=== PATIENT | female | born 1960 | race American Indian/Alaskan Native ===

== ENCOUNTER 2016-07-12 05:52 | Day surgery (SDC) | payer MEDICAID ==
[2016-07-12] MEDS ORDERED: ECOTRIN PO ONE (06:21)
[2016-07-12 06:55] LABS: Basophils % (Auto) 0.3 % (0.0-1.8); Eosinophils % (Auto) 0.8 % (0.0-4.3); Hematocrit 30.6 % (30.3-42.9); Hemoglobin 9.5 gm/dl (10.1-14.3); Mean Corpuscular HGB Conc 31 % (30-34); Mean Corpuscular Volume 78 fl (79-97); Platelet Count 262 K/mm3 (140-440); Red Blood Count 3.91 M/mm3 (3.65-5.03); Red Cell Distribution Width 16.2 % (13.2-15.2); White Blood Count 9.6 K/mm3 (4.5-11.0)
[2016-07-12 06:56] LABS: Mean Corpuscular Hemoglobin 24 pg (28-32)
[2016-07-12] MEDS ORDERED: NACL 0.9% 500 ML 500 ML IV SCH (07:00)
[2016-07-12 07:05] LABS: INR 1.11 (0.87-1.13)
[2016-07-12 07:13] LABS: BUN/Creatinine Ratio 21.11; Blood Urea Nitrogen 19 mg/dL (7-17); Carbon Dioxide 34 mmol/L (22-30); Chloride 95.4 mmol/L (98-107); Glucose 112 mg/dL (65-100); Potassium 3.7 mmol/L (3.6-5.0); Sodium 140 mmol/L (137-145)
[2016-07-12 07:16] LABS: Anion Gap 14 mmol/L
[2016-07-12] MEDS ORDERED: HEPARIN/NS 5000 UNIT/500ML(CATH LAB) 1,000 ML IR ONE (09:34)
[2016-07-12] MEDS ORDERED: XYLOCAINE 2% INFILTRATI ONE (09:35)
[2016-07-12] MEDS ORDERED: SUBLIMAZE ONE (09:35)
[2016-07-12] MEDS ORDERED: VERSED ONE (09:35)
[2016-07-12] MEDS ORDERED: NITROGLYCERIN SYRINGE 3 ML ONE (09:40)
[2016-07-12] MEDS ORDERED: CALAN ONE (09:40)
[2016-07-12] MEDS: HEPARIN 10,000 UNITS/10 ML ONE ×2 (09:41→09:50)
[2016-07-12] MEDS ORDERED: APRESOLINE ONE (09:46)
[2016-07-12] MEDS ORDERED: PLAVIX PO SCH (10:00)
--- NOTE | 2016-07-12 10:17 | Short Stay Summary ---
Short Stay Documentation Date of service: 07/12/16 - History Past Medical History: CAD, COPD, diabetes, heart failure, hyperthyroidism, hypertension Past Surgical History: Other (stent ) Social history: no IV drug use (ex crack) - Allergies and Medications Current Medications: Allergies SAPNA Inhibitors Allergy (Verified 07/12/16 06:20) Angioedema lisinopril Allergy (Verified 07/12/16 06:20) Angioedema roflumilast [From Daliresp] Adverse Reaction (Verified 07/12/16 06:20) cough Home Medications Medication Instructions Recorded Confirmed Last Taken Type Famotidine [Pepcid] 40 mg PO QHS #7 tablet 05/04/14 07/12/16 07/11/16 Rx Furosemide [Lasix] 40 mg PO DAILY #30 tablet 05/04/14 07/12/16 07/11/16 Rx Insulin Aspart [NovoLOG 100 10 unit SQ AC #30 units 05/04/14 07/12/16 07/11/16 Rx UNITS/ML VIAL] Albuterol Sulfate [Ventolin HFA] 2 puff IH Q4H PRN #3 hfa.aer.ad 05/27/15 Unknown Rx Aspirin [Aspirin BABY CHEW TAB] 81 mg PO DAILY #90 tab.chew 05/27/15 07/12/16 Rx Budesoni/Formotero 160-4.5(Nf) 2 puff IH BID #3 inha 05/27/15 07/12/16 07/11/16 Rx [Symbicort 160-4.5 (Nf)] Carvedilol [Coreg] 25 mg PO BID 60 Days 05/27/15 07/12/16 07/11/16 Rx Clopidogrel [Plavix] 75 mg PO QDAY #30 tablet 05/27/15 07/12/16 07/11/16 Rx Latanoprost 0.005% [Xalatan 0.005%] 1 drop OP QPM #3 bottle 05/27/15 07/12/16 Rx Potassium Chloride [K-Dur] 20 meq PO QDAY #30 tablet 05/27/15 07/12/16 07/11/16 Rx Prednisone [predniSONE 10 mg 10 mg PO DAILY #30 tab.ds.pk 05/27/15 07/12/1610/22 Rx (6-Day Pack, 21 Tabs)] Simvastatin [Zocor TAB] 20 mg PO QHS #30 tablet 05/27/15 07/12/16 07/11/16 Rx hydrALAZINE [Apresoline TAB] 100 mg PO BID 30 Days 05/27/15 07/12/16 07/11/16 Rx oxyCODONE /ACETAMINOPHEN [Percocet 1 tab PO Q6H PRN #40 tablet 05/27/1507/11/16 20:00 Rx 5/325 mg] Insulin Glargine [Lantus VIAL] 35 units SC QHS 07/12/16 07/12/16 07/11/16 History Ipratropium/Albuterol Sulfate 1 ampul IH Q6HRT PRN 07/12/16 07/12/16 07/11/16 History [Duoneb 0.5 mg-3 mg/3 ml Soln] Metolazone [Zaroxolyn] 5 mg PO QDAY 07/12/16 07/12/16 07/11/16 History Temazepam [Restoril] 30 mg PO QHS PRN 07/12/16 07/12/16 07/11/16 History amLODIPine [Norvasc] 5 mg PO DAILY 07/12/16 07/12/16 07/11/16 History Active Medications Clopidogrel Bisulfate (Plavix) 75 mg PO QDAY [facility] Last Admin: 07/12/16 08:27 Dose: 75 mg Sodium Chloride (Nacl 0.9% 500 Ml) 500 mls @ 50 mls/hr IV DIRECT GREY Stop: 07/12/16 16:59 Last Admin: 07/12/16 08:25 Dose: 50 mls/hr - Physical exam General appearance: no acute distress Integumentary: no rash HEENT: PERRLA, EOMI Lungs: Clear to auscultation Breasts: deferred Heart: Normal S1, Normal S2, No murmurs Gastrointestinal: normal Female Genitourinary: deferred, normal Rectal Exam: deferred Extremities: abnormal (trace edema) Neurological: Normal gait, Normal speech - Brief post op/procedure progress note Date of procedure: 07/12/16 Pre-op diagnosis: abnl stress test Post-op diagnosis: same Procedure: see report Anesthesia: local Estimated blood loss: none Pathology: none - Disposition Condition at discharge: Good Disposition: DISCHARGED TO HOME OR SELFCARE - Discharge Diagnoses (1) Acute on chronic diastolic (congestive) heart failure Status: Acute (2) CAD (coronary artery disease) Status: Chronic Qualifiers: Coronary Disease-Associated Artery/Lesion type: [place] artery [place] vs. transplanted heart: [place] heart Associated angina: with other forms of angina Qualified Code(s): I25.118 - Atherosclerotic heart disease of [place] coronary artery with other forms of angina pectoris (3) COPD (chronic obstructive pulmonary disease) Status: Chronic Qualifiers: COPD type: unspecified COPD Qualified Code(s): J44.9 - Chronic obstructive pulmonary disease, unspecified (4) Diabetes mellitus Status: Chronic Qualifiers: Diabetes mellitus type: type 1 Diabetes mellitus complication status: without complication Qualified Code(s): E10.9 - Type 1 diabetes mellitus without complications (5) H/O percutaneous transluminal coronary angioplasty Status: Chronic (6) Hyperlipidemia Status: Chronic (7) Morbid obesity with body mass index of 40.0-49.9 Status: Chronic (8) Obstructive sleep apnea Status: Chronic (9) Sleep disorder breathing Status: Chronic Short Stay Discharge Plan Activity: advance as tolerated Diet: low fat, low cholesterol, low salt, diabetic Wound: keep clean and dry
--- NOTE | 2016-07-12 11:54 | Cardiac Catherization Report ---
LEFT HEART CATHETERIZATION CLINICAL INFORMATION: This is a 56-year-old morbidly obese female, allergic to lisinopril, has known coronary artery disease, had PCI of the LAD 8 years ago, drug-eluting stent, had known total occlusion of the circumflex and RCA. The patient has chronic shortness of breath, had a stress test. cardiac pet showed ischemia with decreased LV function and is here for a left heart catheterization. The patient also has hypertension, diabetes, cholesterol. Left heart catheterization performed via the right radial artery. Normal James's test, sterile technique, local anesthesia, 5-[place] radial sheath. Left system engaged with JL3.5 catheter, 5-E[place]ian. FINDINGS: Left main is a large caliber vessel, patent, bifurcates into large LAD, proximal is patent, mid stent widely patent. It is wrapped around LAD, is patent. Diagonal 1 and diagonal 2 are medium caliber vessel, patent. Circumflex is a small caliber vessel that in the mid is 100% with short occlusion, fills left to left collaterals into a small OM1 and distal circumflex. Extensive collaterals from the septals feeding into, going to a small PDA, PLV, and retrograde filled up to the distal RCA. RCA engaged with JR4 catheter, is a small caliber vessel, proximal is 100%, proximal occlusion is 60 mm noted and this is chronic. LV gram done in the UZBEK and ERNANDEZ view shows normal LV function, LVEDP of 20-22 mmHg, LV is 175. Aortic is 168/81. No gradient across the aortic valve on pullback. 5-[place]ian catheters were taken over a guidewire, 5-[place] radial sheath was discontinued. Radial dressing applied. No hematoma. No bleeding. SUMMARY: 1. Left main patent, LAD patent, mid stent widely patent. Diagonal 1, diagonal 2 patent. Chronic total occlusion of the mid circumflex, which is old, no change from 2008 and feeds into a small via left to left collaterals to OM1 distal circ. RCA is also 100% in the proximal, 60 mm length chronic total occlusion that is not changed since the last heart catheterization with left to right collaterals. The patient has normal LV function with normal left end-diastolic pressure. 2. Continue medical management. The patient with coronary artery disease and diastolic dysfunction, and the patient may be referred to [facility] for possible PCI of BROACH TROUBLE SHOOTER of RCA or circumflex as need be, discussed this in detail with the patient and the patient's family. JOB# [id number] ASHLEE/DIANN WALLACE
[2016-07-12 12:41] VITALS: BP 131/45
--- NOTE | 2016-07-12 13:43 | XRay Report ---
The normal right knee: AP and lateral views demonstrates good alignment of the knee with good preservation of the articular surfaces and joint spaces. The bones are well-mineralized. There is a healed fracture involving the proximal shaft of the fibula. No joint effusion. Abundant soft tissues. Impression: No acute findings or knee pathology identified.
== END 2016-07-12 12:55 | disposition home or self-care (01) ==
LOC: OPU 05:52
PROVIDERS: ATTEND Internal Medicine
DX: I25.10 Atherosclerotic heart disease of native coronary artery without angina pectoris (principal); I25.82 Chronic total occlusion of coronary artery; J44.9 Chronic obstructive pulmonary disease, unspecified; E11.9 Type 2 diabetes mellitus without complications; E03.9 Hypothyroidism, unspecified; I11.0 Hypertensive heart disease with heart failure; I50.33 Acute on chronic diastolic (congestive) heart failure; E78.5 Hyperlipidemia, unspecified; G47.33 Obstructive sleep apnea (adult) (pediatric); E66.01 Morbid (severe) obesity due to excess calories; Z68.44 Body mass index [BMI] 60.0-69.9, adult; Z95.5 Presence of coronary angioplasty implant and graft
CPT/HCPCS: 36415; 73560; 80048; 85025; 85610; 85730; 93005; 93010; 93458; C1894; J0360; J1644; J7040; J2250; J3010; Q9967

== ENCOUNTER 2017-09-24 08:30 | Outpatient (CLI) | payer MEDICAID ==
--- NOTE | 2017-09-25 09:49 | Vascular Lab Report ---
LOWER EXTREMITY VENOUS DUPLEX: REASON FOR EXAM: Deep venous thrombosis. COMMENTS ON THE RIGHT: All veins visualized are freely compressible without evidence of internal echogenicity. Flow is spontaneous and phasic throughout. COMMENTS ON THE LEFT: All veins visualized are freely compressible without evidence of internal echogenicity. Flow is spontaneous and phasic throughout. IMPRESSION: No evidence of acute or chronic deep venous thrombosis in either lower extremity. Mild technical limitations due to patient's body habitus.
== END 2017-09-24 08:31 | disposition home or self-care (01) ==
LOC: VAS 08:30
PROVIDERS: ATTEND Family Medicine
DX: M79.661 Pain in right lower leg (principal); M79.662 Pain in left lower leg
CPT/HCPCS: 93970

== ENCOUNTER 2018-10-16 20:46 | Inpatient (IN) | payer MEDICAID ==
[2018-10-16] MEDS ORDERED: ATROVENT IH ONE (21:32)
[2018-10-16] MEDS ORDERED: PROVENTIL IH ONE (21:32)
--- NOTE | 2018-10-16 21:33 | Emergency Department Report ---
ED General Adult HPI - General Chief complaint: Dyspnea/Respdistress Stated complaint: AISHA, SOB Time Seen by Provider: 10/16/18 21:07 Source: patient, EMS (ems notes not available at time of chart dictation), RN notes reviewed, old records reviewed Mode of arrival: Stretcher Limitations: Physical Limitation - History of Present Illness Initial comments: Primary care Dr.: Dr. Hurt Past medical history: Morbid obesity, COPD, debility, heart disease, congestive heart failure, poor ejection fraction, 55% This is a 58-year-old female. The patient is currently on home hospice but is a full code reportedly. She is sent to the ER by her hospice nurse for evaluation of lower extremity swelling, cough, wheezing, shortness of breath. The symptoms have been going on for 2 days as per the patient. She also endorses left-sided thoracic pain. This is an aching pain. It does not radiate anywhere. It increases with palpation and decreases with rest. The patient is poorly ambulatory at baseline, but occasionally ambulate with a cane and/or walker. She believes that she's had unintentional weight gain. She has bilateral lower extremity swelling. She denies fevers, denies urinary symptoms. -: Gradual, days(s) Location: chest (left sided hemithorax), left, right Radiation: non-radiation, distal Severity scale (0 -10): 0 Quality: other Consistency: other Improves with: other Worsens with: other Associated Symptoms: cough, loss of appetite, malaise, shortness of breath, weakness. denies: chest pain - Related Data Home Medications Medication Instructions Recorded Confirmed Last Taken Aspirin 1 tab PO DAILY 10/17/18 10/17/18 Unknown AtorvaSTATin [Lipitor] 40 mg PO QHS 10/17/18 10/17/18 Unknown Carvedilol 1 tab PO BID 10/17/18 10/17/18 Unknown Clopidogrel [Plavix] 1 tab PO DAILY 10/17/18 10/17/18 Unknown Docusate Sodium [Stool Softener] 100 mg PO BID 10/17/18 10/17/18 Unknown Ezetimibe [Zetia] 10 mg PO QDAY 10/17/18 10/17/18 Unknown Famotidine 20 mg PO DAILY 10/17/18 10/17/18 Unknown Furosemide [Lasix TAB] 1 tab PO DAILY 10/17/18 10/17/18 Unknown Hydralazine HCl 1 tab PO BID 10/17/18 10/17/18 Unknown Isosorbide Dinitrate 1 tab PO DAILY 10/17/18 10/17/18 Unknown Potassium 1 tab PO DAILY 10/17/18 10/17/18 Unknown amLODIPine [Norvasc] 5 mg PO DAILY 10/17/18 10/17/18 Unknown metOLazone [Metolazone] 1 tab PO DAILY 10/17/18 10/17/18 Unknown predniSONE [Prednisone] 10 mg PO DAILY 10/17/18 10/17/18 Unknown Allergies Allergy/AdvReac Type Severity Reaction Status Date / Time SAPNA Inhibitors Allergy Angioedema Verified 07/12/16 06:20 lisinopril Allergy Angioedema Verified 07/12/16 06:20 roflumilast [From Daliresp] AdvReac cough Verified 07/12/16 06:20 ED Review of Systems ROS: Stated complaint: AISHA, SOB Other details as noted in HPI Constitutional: malaise. denies: fever Eyes: denies: eye discharge ENT: congestion Respiratory: cough, shortness of breath, SOB with exertion, SOB at rest, wheezing Cardiovascular: edema. denies: chest pain Gastrointestinal: denies: nausea Genitourinary: denies: dysuria Musculoskeletal: back pain, arthralgia Skin: denies: lesions Neurological: weakness ED Past Medical Hx - Past Medical History Previous Medical History?: Yes Hx Hypertension: Yes Hx Heart Attack/AMI: (coronary artery stent) Hx Congestive Heart Failure: Yes Hx Diabetes: Yes Hx Deep Vein Thrombosis: No Hx Pulmonary Embolism: No Hx Liver Disease: No Hx Sickle Cell Disease: No Hx Asthma: No Hx COPD: Yes Hx Tuberculosis: No Hx HIV: No Additional medical history: heart stents 2 years ago, sleep apnea, hx of stroke. CAD - Surgical History Past Surgical History?: Yes Hx Coronary Stent: Yes Hx Open Heart Surgery: No Hx Pacemaker: No Hx Internal Defibrillator: No Hx Cholecystectomy: No Hx Appendectomy: No Hx Breast Surgery: No Additional Surgical History: x 2 - Social History Smoking Status: Former Smoker Substance Use Type: None - Medications Home Medications: Home Medications Medication Instructions Recorded Confirmed Last Taken Type Aspirin 1 tab PO DAILY 10/17/18 10/17/18 Unknown History AtorvaSTATin [Lipitor] 40 mg PO QHS 10/17/18 10/17/18 Unknown History Carvedilol 1 tab PO BID 10/17/18 10/17/18 Unknown History Clopidogrel [Plavix] 1 tab PO DAILY 10/17/18 10/17/18 Unknown History Docusate Sodium [Stool Softener] 100 mg PO BID 10/17/18 10/17/18 Unknown History Ezetimibe [Zetia] 10 mg PO QDAY 10/17/18 10/17/18 Unknown History Famotidine 20 mg PO DAILY 10/17/18 10/17/18 Unknown History Furosemide [Lasix TAB] 1 tab PO DAILY 10/17/18 10/17/18 Unknown History Hydralazine HCl 1 tab PO BID 10/17/18 10/17/18 Unknown History Isosorbide Dinitrate 1 tab PO DAILY 10/17/18 10/17/18 Unknown History Potassium 1 tab PO DAILY 10/17/18 10/17/18 Unknown History amLODIPine [Norvasc] 5 mg PO DAILY 10/17/18 10/17/18 Unknown History metOLazone [Metolazone] 1 tab PO DAILY 10/17/18 10/17/18 Unknown History predniSONE [Prednisone] 10 mg PO DAILY 10/17/18 10/17/18 Unknown History ED Physical Exam - General Limitations: Physical Limitation General appearance: alert, in no apparent distress, obese - Head Head exam: Present: atraumatic, normocephalic - Eye Eye exam: Present: normal appearance, EOMI. Absent: nystagmus - ENT ENT exam: Present: normal exam, normal orophraynx, mucous membranes moist, nor mal external ear exam - Neck Neck exam: Present: normal inspection, full ROM. Absent: tenderness, meningismus - Respiratory Respiratory exam: Present: wheezes, rhonchi, decreased breath sounds. Absent: respiratory distress - Cardiovascular Cardiovascular Exam: Present: regular rate, normal rhythm, normal heart sounds. Absent: bradycardia, tachycardia, irregular rhythm, systolic murmur, diastolic murmur, rubs, gallop - GI/Abdominal GI/Abdominal exam: Present: soft. Absent: distended, tenderness, guarding, rebound, rigid, pulsatile mass - Extremities Exam Extremities exam: Present: normal inspection, full ROM, pedal edema, calf tenderness, other (2+ pulses noted in the bilateral upper, lower extremities. Compartments soft. No long bony tenderness. The pelvis is stable.) - Back Exam Back exam: Present: normal inspection, full ROM. Absent: tenderness, CVA tenderness (R), paraspinal tenderness, vertebral tenderness - Neurological Exam Neurological exam: Present: alert, oriented X3, other (Extraocular movements intact. Tongue midline. No facial droop. Facial sensation intact to light touch in the V1, V2, V3 distribution bilaterally. 5 and 5 strength in 4 extremities.. Sensation is intact to light touch in 4 extremities.). Absent: motor sensory deficit - Psychiatric Psychiatric exam: Present: anxious - Skin Skin exam: Present: warm, dry, intact, normal color. Absent: rash ED Course Vital Signs 10/16/18 10/16/18 10/16/18 21:17 22:00 22:01 Temperature 98.2 F 98.1 F Pulse Rate 67 63 Pulse Rate [ Bilateral Throughout] Respiratory 20 11 L Rate Respiratory Rate [Bilateral Throughout] Blood Pressure 135/89 135/82 Blood Pressure 135/85 [Left] O2 Sat by Pulse 100 100 Oximetry 10/16/18 22:55 Temperature Pulse Rate Pulse Rate [ 101 H Bilateral Throughout] Respiratory Rate Respiratory 20 Rate [Bilateral Throughout] Blood Pressure Blood Pressure [Left] O2 Sat by Pulse Oximetry - Reevaluation(s) Reevaluation #1: 10/16/18 23:08 Differential diagnosis, including but not limited to: COPD exacerbation, congestive heart failure exacerbation, pulmonary hypertension, pneumonia, pulmonary embolus, acute coronary syndrome Assessment and plan: 58-year-old female, morbidly obese, COPD, uncertain if on home oxygen, most likely has pulmonary hypertension, most likely chronic hypercarbic retainer, with probable right-sided heart failure, evidence by shortness of breath, wheezing, lower extremity edema, and obese body habitus. We will obtain CT scan of the chest to exclude pulmonary embolus. Patient given steroids by EMS prior to arrival. We will treat her with albuterol, Atrovent, Lasix, and supplemental magnesium. Patient will be admitted to the medical service. Patient understands that she is going to, hospice. She verbalizes understanding. Reevaluation #2: 10/17/18 00:36 CT scan shows no evidence of pulmonary embolus. Laboratory studies and a venous blood gas. Abg consistent with chronic COPD, and mild to moderate hypercarbia. Plan to admit the patient to the medical service for diuresis, COPD exacerbation Hospital physician. Patient also found to have hypomagnesemia. Reevaluation #3: 10/17/18 00:53 Hospital physician, Dr. Marrero, who has accepted the patient to the medical service. Patient currently asking to eat. ED Medical Decision Making - Lab Data Result diagrams: 10/16/18 21:42 10/16/18 21:42 Vital Signs 10/16/18 10/16/18 21:17 22:01 Temperature 98.2 F Pulse Rate 67 63 Respiratory 20 11 L Rate Blood Pressure 135/89 135/82 Blood Pressure 135/85 [Left] O2 Sat by Pulse 100 100 Oximetry Lab Results 10/16/18 10/16/18 10/16/18 Range/Units 21:42 21:42 21:42 WBC 10.2 (4.5-11.0) K/mm3 RBC 3.65 (3.65-5.03) M/mm3 Hgb 10.4 (10.1-14.3) gm/dl Hct 32.1 (30.3-42.9) % MCV 88 (79-97) fl MCH 28 (28-32) pg MCHC 32 (30-34) % RDW 14.5 (13.2-15.2) % Plt Count 311 (140-440) K/mm3 Lymph % (Auto) 19.1 (13.4-35.0) % [place] % (Auto) 6.8 (0.0-7.3) % Eos % (Auto) 0.5 (0.0-4.3) % Baso % (Auto) 0.5 (0.0-1.8) % Lymph # 2.0 (1.2-5.4) K/mm3 [place] # 0.7 (0.0-0.8) K/mm3 Eos # 0.1 (0.0-0.4) K/mm3 Baso # 0.1 (0.0-0.1) K/mm3 Seg Neutrophils % 73.1 H (40.0-70.0) % Seg Neutrophils # 7.5 (1.8-7.7) K/mm3 PT 14.8 (12.2-14.9) Sec. INR 1.09 (0.87-1.13) APTT 25.8 (24.2-36.6) Sec. Sodium 141 (137-145) mmol/L Potassium 3.6 (3.6-5.0) mmol/L Chloride 95.8 L (98-107) mmol/L Carbon Dioxide 36 H (22-30) mmol/L Anion Gap 13 mmol/L BUN 20 H (7-17) mg/dL Creatinine 1.2 (0.7-1.2) mg/dL Estimated GFR 56 ml/min BUN/Creatinine Ratio 17 % Glucose 160 H (65-100) mg/dL Lactic Acid (0.7-2.0) mmol/L Calcium 9.0 (8.4-10.2) mg/dL Magnesium 1.60 L (1.7-2.3) mg/dL Total Creatine Kinase 70 (30-135) units/L Troponin T (0.00-0.029) ng/mL NT-Pro-B Natriuret Pep 466.5 (0-900) pg/mL 10/16/18 10/16/18 Range/Units 21:42 21:42 WBC (4.5-11.0) K/mm3 RBC (3.65-5.03) M/mm3 Hgb (10.1-14.3) gm/dl Hct (30.3-42.9) % MCV (79-97) fl MCH (28-32) pg MCHC (30-34) % RDW (13.2-15.2) % Plt Count (140-440) K/mm3 Lymph % (Auto) (13.4-35.0) % [place] % (Auto) (0.0-7.3) % Eos % (Auto) (0.0-4.3) % Baso % (Auto) (0.0-1.8) % Lymph # (1.2-5.4) K/mm3 [place] # (0.0-0.8) K/mm3 Eos # (0.0-0.4) K/mm3 Baso # (0.0-0.1) K/mm3 Seg Neutrophils % (40.0-70.0) % Seg Neutrophils # (1.8-7.7) K/mm3 PT (12.2-14.9) Sec. INR (0.87-1.13) APTT (24.2-36.6) Sec. Sodium (137-145) mmol/L Potassium (3.6-5.0) mmol/L Chloride (98-107) mmol/L Carbon Dioxide (22-30) mmol/L Anion Gap mmol/L BUN (7-17) mg/dL Creatinine (0.7-1.2) mg/dL Estimated GFR ml/min BUN/Creatinine Ratio % Glucose (65-100) mg/dL Lactic Acid 1.70 (0.7-2.0) mmol/L Calcium (8.4-10.2) mg/dL Magnesium (1.7-2.3) mg/dL Total Creatine Kinase (30-135) units/L Troponin T < 0.010 (0.00-0.029) ng/mL NT-Pro-B Natriuret Pep (0-900) pg/mL - EKG Data EKG shows normal: sinus rhythm Rate: normal - EKG Data 10/16/18 23:09 This is a normal sinus rhythm, 60 bpm, normal axis, QTC prolonged, T-wave inversions 1, aVL, or are progression, low voltage laterally, abnormal EKG, not having chest pain, this EKG is not consistent with an ST elevation myocardial infarction. - Radiology Data Radiology results: report reviewed, image reviewed Print Report Referring Physician: WISAM ERIC Patient Name: SANTIAGO CASE Date of : 1960 Sex: Female Report Date: 2018-10-16 Report Status: [place] [id number] XRay Report Signed Patient: SANTIAGO CASE MR#: [id number] : 1960 Acct:[id number] Age/Sex: 58 / F ADM Date: 10/16/18 Loc: ED Attending Dr: Ordering Physician: WISAM ERIC MD Date of Service: 10/16/18 Procedure(s): XR chest 1V ap Accession Number(s): [id number] cc: WISAM ERIC MD Fluoro Time In Minutes: PROCEDURE: XR CHEST 1V AP TECHNIQUE: Chest radiograph single view. HISTORY: dyspnea COMPARISONS: None . FINDINGS: Heart: Normal. Mediastinum/Vessels: Mild degree cardiomegaly is noted. There is mild degree pulmonary venous congestion. Lungs/Pleural space: Left lower lung and left costophrenic angle is obscured by the cardiac shadow. Right lung and right pleural spaces are clear.. Bony thorax: No acute osseous abnormality. Life support devices: None. IMPRESSION: Mild degree cardiomegaly with pulmonary venous congestion are suggestive of CHF. Left lower lung and left costophrenic angle are obscured by the cardiac shadow. Any underlying infiltrates or left pleural effusion cannot be excluded. A two-view chest study is recommended whe never the patient's condition permits.. This document is electronically signed by Jenn Altman MD., October 16 2018 10:20:07 PM ET Transcribed By: [facility] [place] Dictated By: JENN ALTMAN Electronically Authenticated By: JENN ALTMAN Signed Date/Time: 10/16/182221 Print Report Referring Physician: WISAM ERIC Patient Name: SANTIAGO CASE Date of : 1960 Sex: Female Report Date: 2018-10-16 Report Status: [place] [id number] Cat Scan Report Signed Patient: SANTIAGO CASE MR#: [id number] : 1960 Acct:[id number] Age/Sex: 58 / F ADM Date: 10/16/18 Loc: ED Attending Dr: Ordering Physician: WISAM ERIC MD Date of Service: 10/16/18 Procedure(s): CT angio chest Accession Number(s): [id number] cc: WISAM ERIC MD PROCEDURE: CT ANGIO CHEST TECHNIQUE: Computerized tomographic angiography of the chest was performed after the IV injection of iodinated nonionic contrast including image processing. The image data was postprocessed using 2-dimensional multiplanar reformatted (MPR) and 3-dimensional (MIP and/or volume rendered) techniques. Automated exposure control, adjustment of mA and/or kV according to patient size, or iterative reconstruction dose optimization techniques were utilized. HISTORY: left flank pain leg swelling sob COMPARISONS: None . FINDINGS: Heart and pericardium: Normal. Thoracic aorta: There is no evidence of pulmonary arterial emboli. Pulmonary vasculature: Normal. Lymph nodes: Mild atelectasis bilateral lower lungs. The remainder of the lungs are clear. The central airway is patent. Lungs: Normal. Pleural space: No effusion, thickening, or pneumothorax. Musculoskeletal structures: No significant abnormality. Upper abdominal structures: No significant abnormality. IMPRESSION: There is no evidence of pulmonary arterial emboli. There is slight atelectasis in both lower lungs. . This document is electronically signed by Ashwini Boucher DO., October 17 2018 12:19:17 AM ET Transcribed By: [facility] Dictated By: ASHWINI BOUCHER MD Electronically Authenticated By: ASHWINI BOUCHER MD Signed Date/Time: 10/17/18 0021 [id number]/ [id number] Critical Care Time: Yes Critical care time in (mins) excluding proc time.: 45 Critical care attestation.: If time is entered above; I have spent that time in minutes in the direct care of this critically ill patient, excluding procedure time. ED Disposition Clinical Impression: Acute exacerbation of chronic obstructive pulmonary disease (COPD), Acute on chronic systolic heart failure, Sleep disorder breathing, Morbid obesity with body mass index of 40.0-49.9 Disposition: -09 OP ADMIT IP TO THIS HOSP Is pt being admited?: Yes Does the pt Need Aspirin: Yes Condition: Fair Instructions: Chronic Obstructive Pulmonary Disease (ED) Referrals: MAG HURT MD [Primary Care Provider] - 3-5 Days
[2018-10-16 22:11] LABS: Basophils # (Auto) 0.1 K/mm3 (0.0-0.1); Basophils % (Auto) 0.5 % (0.0-1.8); Eosinophils # (Auto) 0.1 K/mm3 (0.0-0.4); Eosinophils % (Auto) 0.5 % (0.0-4.3); Hematocrit 32.1 % (30.3-42.9); Hemoglobin 10.4 gm/dl (10.1-14.3); Lymphocytes % (Auto) 19.1 % (13.4-35.0); Mean Corpuscular HGB Conc 32 % (30-34); Mean Corpuscular Volume 88 fl (79-97); Monocytes # (Auto) 0.7 K/mm3 (0.0-0.8); Monocytes % (Auto) 6.8 % (0.0-7.3); Platelet Count 311 K/mm3 (140-440); Red Blood Count 3.65 M/mm3 (3.65-5.03); Red Cell Distribution Width 14.5 % (13.2-15.2)
[2018-10-16 22:19] LABS: INR 1.09 (0.87-1.13)
[2018-10-16 22:20] LABS: Partial Thromboplastin Time 25.8 Sec. (24.2-36.6)
--- NOTE | 2018-10-16 22:22 | XRay Report ---
PROCEDURE: XR CHEST 1V AP TECHNIQUE: Chest radiograph single view. HISTORY: dyspnea COMPARISONS: None . FINDINGS: Heart: Normal. Mediastinum/Vessels: Mild degree cardiomegaly is noted. There is mild degree pulmonary venous congest ion. Lungs/Pleural space: Left lower lung and left costophrenic angle is obscured by the cardiac shadow. Right lung and right pleural spaces are clear.. Bony thorax: No acute osseous abnormality. Life support devices: None. IMPRESSION: Mild degree cardiomegaly with pulmonary venous congestion are suggestive of CHF. Left lower lung and left costophrenic angle are obscured by the cardiac shadow. Any underlying infilt rates or left pleural effusion cannot be excluded. A two-view chest study is recommended whenever the patient's condition permits.. This document is electronically signed by Carson Altman MD., October 16 2018 10:20:07 PM ET
[2018-10-16] MEDS ORDERED: LASIX IV ONE (22:37)
[2018-10-16] MEDS ORDERED: SOLU-Medrol IV ONE (22:37)
[2018-10-16] MEDS ORDERED: LEVAQUIN 500MG/100ML 500 MG/100 ML BAG IV ONE (22:39)
[2018-10-16 22:52] LABS: Bacteria,Urine 2+ /HPF (Negative); Bilirubin,Urine NEG (Negative); Blood,Urine SM (Negative); Color,Urine Yellow (Yellow); Hyaline Casts,Urine 12 /LPF; Mucus,Urine FEW /HPF; Protein,Urine <15 mg/dL mg/dL (Negative)
[2018-10-16 22:55] LABS: WBC,Urine > 182.0 /HPF (0.0-6.0)
[2018-10-16] MEDS ORDERED: MAGNESIUM SULFATE 2GM/50ML 2 GM/50 ML BAG IV ONE (23:05)
[2018-10-16] MEDS ORDERED: BABY ASPIRIN PO ONE (23:11)
--- NOTE | 2018-10-17 00:21 | Cat Scan Report ---
PROCEDURE: CT ANGIO CHEST TECHNIQUE: Computerized tomographic angiography of the chest was performed after the IV injection of iodinated nonionic contrast including image processing. The image data was postprocessed using 2-di mensional multiplanar reformatted (MPR) and 3-dimensional (MIP and/or volume rendered) techniques. Au tomated exposure control, adjustment of mA and/or kV according to patient size, or iterative reconstr uction dose optimization techniques were utilized. HISTORY: left flank pain leg swelling sob COMPARISONS: None . FINDINGS: Heart and pericardium: Normal. Thoracic aorta: There is no evidence of pulmonary arterial emboli. Pulmonary vasculature: Normal. Lymph nodes: Mild atelectasis bilateral lower lungs. The remainder of the lungs are clear. The centr al airway is patent. Lungs: Normal. Pleural space: No effusion, thickening, or pneumothorax. Musculoskeletal structures: No significant abnormality. Upper abdominal structures: No significant abnormality. IMPRESSION: There is no evidence of pulmonary arterial emboli. There is slight atelectasis in both lower lungs. . This document is electronically signed by Ashwini Boucher DO., October 17 2018 12:19:17 AM ET
[2018-10-17] MEDS ORDERED: D50W (25GM) Syringe IV PRN (03:56)
--- NOTE | 2018-10-17 04:01 | History and Physical Report ---
History of Present Illness Date of examination: 10/17/18 Date of admission: 10/17/18 00:53 Chief complaint: LE Edema X 2 days History of present illness: 58F with PMH of COPD, CHF, DM, HTN, Morbid obesity, Diastolic CHF who is currently on Hospice at a Private care facility was sent here for LE edema, SOB and general weakness in the last few days. Pt says she fell days ago and that her Rt knee hurt then but its better and she is able to bend it. She says she was on BID Lasix dosing but it was changed to Qday dosing for reasons unknown to her. Today, she alleges her weight is 352 pds but usually she is 323 pds. She denies any CP, jaw or chin pain, orthopnea, PND, Dysuria,polyuria, fever, chills, or phlegm production. She is non ambulatory she reports but she states she can put weight on her legs. Chart review show a TTecho 05/24/15 with EF of 50%, abnormal relaxation was present. Normal LV Systolic function. Medications and Allergies Allergies Allergy/AdvReac Type Severity Reaction Status Date / Time SAPNA Inhibitors Allergy Angioedema Verified 07/12/16 06:20 lisinopril Allergy Angioedema Verified 07/12/16 06:20 roflumilast [From Daliresp] AdvReac cough Verified 07/12/16 06:20 Home Medications Medication Instructions Recorded Confirmed Last Taken Type Aspirin 1 tab PO DAILY 10/17/18 10/17/18 Unknown History AtorvaSTATin [Lipitor] 40 mg PO QHS 10/17/18 10/17/18 Unknown History Carvedilol 1 tab PO BID 10/17/18 10/17/18 Unknown History Clopidogrel [Plavix] 1 tab PO DAILY 10/17/18 10/17/18 Unknown History Docusate Sodium [Stool Softener] 100 mg PO BID 10/17/18 10/17/18 Unknown History Ezetimibe [Zetia] 10 mg PO QDAY 10/17/18 10/17/18 Unknown History Famotidine 20 mg PO DAILY 10/17/18 10/17/18 Unknown History Furosemide [Lasix TAB] 1 tab PO DAILY 10/17/18 10/17/18 Unknown History Hydralazine HCl 1 tab PO BID 10/17/18 10/17/18 Unknown History Insulin Aspart [NovoLOG 100 See Protocol SQ ACHS 10/17/18 10/17/18 Unknown History UNITS/ML VIAL] Isosorbide Dinitrate 1 tab PO DAILY 10/17/18 10/17/18 Unknown History Lantus VIAL 36 units SQ HS 10/17/18 10/17/18 10/15/18 22:00 History Potassium 1 tab PO DAILY 10/17/18 10/17/18 Unknown History Temazepam 15 mg PO HS 10/17/18 10/17/18 Unknown History amLODIPine [Norvasc] 5 mg PO DAILY 10/17/18 10/17/18 Unknown History metOLazone [Metolazone] 1 tab PO DAILY 10/17/18 10/17/18 Unknown History oxyCODONE [Roxicodone] 5 mg PO BID 10/17/18 10/17/18 Unknown History predniSONE [Prednisone] 10 mg PO DAILY 10/17/18 10/17/18 Unknown History Active Meds: Active Medications Albuterol/Ipratropium (Duoneb *Not For Prn Use*) 1 ampul IH Q6HRT [facility] Amlodipine Besylate (Norvasc) 5 mg PO DAILY [facility] Aspirin (Baby Aspirin) mg PO DAILY [facility] Atorvastatin Calcium (Lipitor) 40 mg PO QHS [facility] Carvedilol (Coreg) mg PO BID [facility] Clopidogrel Bisulfate (Plavix) mg PO DAILY [facility] Dextrose (D50w (25gm) Syringe) 50 ml IV PRN PRN PRN Reason: Hypoglycemia Docusate Sodium (Colace) 100 mg PO BID [facility] Ezetimibe (Zetia) 10 mg PO QDAY [facility] Famotidine (Pepcid) 20 mg PO DAILY [facility] Furosemide (Lasix) mg PO DAILY [facility] Insulin Human Lispro (Humalog) 0 unit SUB-Q AC [facility]Y; Protocol Metolazone (Zaroxolyn) mg PO DAILY [facility] Miscellaneous Medication (Hydralazine Hcl [Hydralazine Hcl]) 1 tab PO BID [facility] Miscellaneous Medication (Isosorbide Dinitrate [Isosorbide Dinitrate]) 1 tab PO DAILY [facility] Miscellaneous Medication (Prednisone [Prednisone]) 10 mg PO DAILY [facility] Oxycodone HCl (Roxicodone) 5 mg PO BID [facility] Review of Systems All systems: negative Constitutional: fatigue, weakness, chronic pain Exam - Constitutional Vitals: Temp Pulse Resp BP Pulse Ox 97.9 F 86 22 149/70 97 10/17/18 02:30 10/17/18 02:30 10/17/18 02:30 10/17/18 02:30 10/17/18 02:30 General appearance: Present: no acute distress, well-nourished, obese - EENT Eyes: Present: PERRL ENT: hearing intact, clear oral mucosa - Neck Neck: Present: supple, normal ROM - Respiratory Respiratory effort: normal Respiratory: bilateral: CTA, diminished, negative: rales, wheezing - Cardiovascular Heart Sounds: Present: S1 & S2. Absent: rub, click - Extremities Extremities: pulses symmetrical, No edema Extremity abnormal: edema Peripheral Pulses: within normal limits - Abdominal General gastrointestinal: Present: soft, non-tender, non-distended, normal bowel sounds Female genitourinary: Present: normal - Integumentary Integumentary: Present: clear, warm, dry - Musculoskeletal Musculoskeletal: gait normal, strength equal bilaterally - Psychiatric Psychiatric: appropriate mood/affect, intact judgment & insight - Neurologic Neurologic: CNII-XII intact, moves all extremities Results - Labs CBC & Chem 7: 10/16/18 21:42 10/16/18 21:42 Labs: Laboratory Last Values WBC 10.2 K/mm3 (4.5-11.0) 10/16/18 21:42 RBC 3.65 M/mm3 (3.65-5.03) 10/16/18 21:42 Hgb 10.4 gm/dl (10.1-14.3) 10/16/18 21:42 Hct 32.1 % (30.3-42.9) 10/16/18 21:42 MCV 88 fl (79-97) 10/16/18 21:42 MCH 28 pg (28-32) 10/16/18 21:42 MCHC 32 % (30-34) 10/16/18 21:42 RDW 14.5 % (13.2-15.2) 10/16/18 21:42 Plt Count 311 K/mm3 (140-440) 10/16/18 21:42 Lymph % (Auto) 19.1 % (13.4-35.0) 10/16/18 21:42 [place] % (Auto) 6.8 % (0.0-7.3) 10/16/18 21:42 Eos % (Auto) 0.5 % (0.0-4.3) 10/16/18 21:42 Baso % (Auto) 0.5 % (0.0-1.8) 10/16/18 21:42 Lymph # 2.0 K/mm3 (1.2-5.4) 10/16/18 21:42 [place] # 0.7 K/mm3 (0.0-0.8) 10/16/18 21:42 Eos # 0.1 K/mm3 (0.0-0.4) 10/16/18 21:42 Baso # 0.1 K/mm3 (0.0-0.1) 10/16/18 21:42 Seg Neutrophils % 73.1 % (40.0-70.0) H 10/16/18 21:42 Seg Neutrophils # 7.5 K/mm3 (1.8-7.7) 10/16/18 21:42 PT 14.8 Sec. (12.2-14.9) 10/16/18 21:42 INR 1.09 (0.87-1.13) 10/16/18 21:42 APTT 25.8 Sec. (24.2-36.6) 10/16/18 21:42 POC ABG pH 7.431 (7.35-7.45) 10/16/18 23:17 POC ABG pCO2 53.2 (35-45) H 10/16/18 23:17 POC ABG HCO3 35.4 (22-26 mml/L) 10/16/18 23:17 POC ABG Total CO2 37 (23-27mmol/L) 10/16/18 23:17 POC ABG O2 Sat 71 10/16/18 23:17 POC ABG Base Excess 11 ((-2) - (+3)mmol/L) 10/16/18 23:17 FiO2 28 % 10/16/18 23:17 Sodium 141 mmol/L (137-145) 10/16/18 21:42 Potassium 3.6 mmol/L (3.6-5.0) 10/16/18 21:42 Chloride 95.8 mmol/L (98-107) L 10/16/18 21:42 Carbon Dioxide 36 mmol/L (22-30) H 10/16/18 21:42 Anion Gap 13 mmol/L 10/16/18 21:42 BUN 20 mg/dL (7-17) H 10/16/18 21:42 Creatinine 1.2 mg/dL (0.7-1.2) 10/16/18 21:42 Estimated GFR 56 ml/min 10/16/18 21:42 BUN/Creatinine Ratio 17 % 10/16/18 21:42 Glucose 160 mg/dL (65-100) H 10/16/18 21:42 Lactic Acid 1.70 mmol/L (0.7-2.0) 10/16/18 21:42 Calcium 9.0 mg/dL (8.4-10.2) 10/16/18 21:42 Magnesium 1.60 mg/dL (1.7-2.3) L 10/16/18 21:42 Total Creatine Kinase 70 units/L (30-135) 10/16/18 21:42 Troponin T < 0.010 ng/mL (0.00-0.029) 10/16/18 21:42 NT-Pro-B Natriuret Pep 466.5 pg/mL (0-900) 10/16/18 21:42 Urine Color Yellow (Yellow) 10/16/18 22:11 Urine Turbidity Cloudy (Clear) 10/16/18 22:11 Urine pH 5.0 (5.0-7.0) 10/16/18 22:11 Ur Specific [place] 1.023 (1.003-1.030) 10/16/18 22:11 Urine Protein <15 mg/dl mg/dL (Negative) 10/16/18 22:11 Urine Glucose (UA) Neg mg/dL (Negative) 10/16/18 22:11 Urine Ketones Neg mg/dL (Negative) 10/16/18 22:11 Urine Blood Sm (Negative) 10/16/18 22:11 Urine Nitrite Pos (Negative) 10/16/18 22:11 Urine Bilirubin Neg (Negative) 10/16/18 22:11 Urine Urobilinogen 4.0 mg/dL (<2.0) 10/16/18 22:11 Ur Leukocyte Esterase Lg (Negative) 10/16/18 22:11 Urine WBC (Auto) > 182.0 /HPF (0.0-6.0) H 10/16/18 22:11 Urine RBC (Auto) 4.0 /HPF (0.0-6.0) 10/16/18 22:11 Urine Bacteria (Auto) 2+ /HPF (Negative) 10/16/18 22:11 Urine WBC Clumps 2+ /HPF 10/16/18 22:11 Hyaline Casts 12 /LPF 10/16/18 22:11 Urine Mucus Few /HPF 10/16/18 22:11 Assessment and Plan - Patient Problems (1) Acute on chronic diastolic (congestive) heart failure Current Visit: Yes Status: Acute Plan to address problem: Acute on Chronic Diastolic CHF no signs of ischemia thus far but continue IV diuresis with BID - with Mild PHTN on her last TTecho - no need to do much investigation as she is currently under hOspice and further work up wont necessarily change her course or senior living mortality risk - she may need to go back to BID dosing upon discharge. Hx of COPD - non wheezy at this time - appears compensated - continue Duonebs. No indication for Steroids Hypomagnesiumia - with chronic diuretic use - repleted. -monitor lytes Cardiometabolic Syndrome - At it entails HTN, DM, Morbid Obesity, JESSICA and Dyslipidemia - Opt to modify all factors involved DM type2 - Continue insulin - (2) Morbid obesity with body mass index of 40.0-49.9 Current Visit: Yes Status: Chronic (3) Sleep disorder breathing Current Visit: Yes Status: Chronic (4) Atypical chest pain Onset Date: 05/23/15 Current Visit: Yes Status: Acute
[2018-10-17] MEDS: LASIX IV SCH ×2 (07:14→19:00)
[2018-10-17] MEDS: DUONEB *Not for PRN Use IH SCH ×3 (07:59→20:46)
[2018-10-17] MEDS: ZAROXOLYN PO SCH (09:34)
[2018-10-17] MEDS: BABY ASPIRIN PO SCH (09:41)
[2018-10-17] MEDS: PLAVIX PO SCH (09:41)
[2018-10-17] MEDS: PEPCID PO SCH (09:42)
[2018-10-17] MEDS: ROXICODONE PO SCH ×2 (09:42→21:45)
[2018-10-17] MEDS: APRESOLINE PO SCH ×2 (09:42→21:45)
[2018-10-17] MEDS: DELTASONE PO SCH (09:43)
[2018-10-17] MEDS: COREG PO SCH ×2 (09:43→21:46)
[2018-10-17] MEDS: COLACE PO SCH ×2 (09:43→21:46)
[2018-10-17] MEDS: ZETIA PO SCH (09:43)
[2018-10-17] MEDS: IMDUR PO SCH (09:43)
[2018-10-17] MEDS: NORVASC PO SCH (09:44)
[2018-10-17] MEDS ORDERED: NON-FORMULARY (Prednisone [Prednisone] 10 MG) PO SCH (10:00)
[2018-10-17] MEDS ORDERED: LASIX PO SCH (10:00)
[2018-10-17] MEDS ORDERED: HYDRALAZINE HCL PO SCH (10:00)
[2018-10-17] MEDS ORDERED: ISOSORBIDE DINITRATE PO SCH (10:00)
--- NOTE | 2018-10-17 11:25 | XRay Report ---
RIGHT TIBIA/FIBULA, 2 views: History: Patient fell at home, rule out fracture Healing or remodeling fracture in the proximal right fibula is identified which is unchanged since 07/12/16. No acute fracture or bony destruction is identified. No joint pathology. There is moderate diffuse soft tissue edema or swelling. IMPRESSION: Healing/remodeling proximal right fibula fracture. No acute osseous injury. Diffuse soft tissue swelling or edema.
[2018-10-17] MEDS: HumaLOG SUB-Q SCH ×4 (12:07→23:00)
--- NOTE | 2018-10-17 15:04 | Progress Note ---
Assessment and Plan Assessment and plan: Patient is a 58 yo woman with a history of chronic hypoxic respiratory failure on 2 lCOPD, CHF, DM, HTN, Morbid obesity and Diastolic CHF who is currently in Hospice who presented with sob, leg swelling. Pt says she fell days ago and that her Rt knee hurt then but its better and she is able to bend it. She says she was on BID Lasix dosing but it was changed to QDay dosing for reasons unknown to her. Today, she alleges her weight is 352 pds but usually she is 323 pds. * Chart review show a TTecho 05/24/15 with EF of 50%, abnormal relaxation was present. Normal LV Systolic function. * pCXR IMPRESSION: Mild degree cardiomegaly with pulmonary venous congestion are suggestive of CHF. Left lower lung and left costophrenic angle are obscured by the cardiac shadow. Any underlying infiltrates or left pleural effusion cannot be excluded. A two-view chest study is recommended whennever the patient's con dition permits.. * CTA chest IMPRESSION: There is no evidence of pulmonary arterial emboli. There is slight atelectasis in both lower lungs. . Acute on chronic diastolic (congestive) heart failure: treat with iv lasix bid Hx of COPD, stable-continue Duonebs. No indication for Steroids Hypomagnesemia-monitor lytes Cardiometabolic Syndrome-At it entails HTN, DM, Morbid Obesity, JESSICA and Dyslipidemia DM type2-continue insulin Right lower leg pain with dark abrasion/ecchymosis s/p fall: xray leg History Interval history: Patient was seen and examined. Follow-up on current diagnosis of SOB. Overnight uneventful. Patient denies any chest pain, nausea/vomiting or severe headaches. Imaging, nursing note, chart, labs and old chart reviewed. Discussed with patient. Hospitalist Physical - Physical exam Narrative exam: Gen: WDWN, NAD, Awake, Alert, Orientated HEENT: NCAT, EOMI, PERRL, OP Clear Neck: supple, no adenopathy, no thyromegaly, no JVD CVS/Heart: RRR, normal S1S2, pulses present bilaterally Chest/Lungs: diminished bs, Symmetrical chest expansion, good air entry bilaterally GI/Abdomen: soft, NTND, good bowel sounds, no guarding or rebound /Bladder: no suprapubic tenderness, no CVA or paraspinal tenderness Extermity/Skin: no c/c/e, no obvious rash MSK: FROM x 4 Neuro: CN 2-12 grossly intact, no new focal deficits Psych: calm - Constitutional Vitals: Temp Pulse Resp BP Pulse Ox 98.0 F 68 20 132/59 95 10/17/18 12:38 10/17/18 13:15 10/17/18 13:15 10/17/18 12:38 10/17/18 12:38 General appearance: Present: no acute distress, well-nourished, obese Results - Labs CBC & Chem 7: 10/16/18 21:42 10/16/18 21:42 Labs: Laboratory Last Values WBC 10.2 K/mm3 (4.5-11.0) 10/16/18 21:42 RBC 3.65 M/mm3 (3.65-5.03) 10/16/18 21:42 Hgb 10.4 gm/dl (10.1-14.3) 10/16/18 21:42 Hct 32.1 % (30.3-42.9) 10/16/18 21:42 MCV 88 fl (79-97) 10/16/18 21:42 MCH 28 pg (28-32) 10/16/18 21:42 MCHC 32 % (30-34) 10/16/18 21:42 RDW 14.5 % (13.2-15.2) 10/16/18 21:42 Plt Count 311 K/mm3 (140-440) 10/16/18 21:42 Lymph % (Auto) 19.1 % (13.4-35.0) 10/16/18 21:42 [place] % (Auto) 6.8 % (0.0-7.3) 10/16/18 21:42 Eos % (Auto) 0.5 % (0.0-4.3) 10/16/18 21:42 Baso % (Auto) 0.5 % (0.0-1.8) 10/16/18 21:42 Lymph # 2.0 K/mm3 (1.2-5.4) 10/16/18 21:42 [place] # 0.7 K/mm3 (0.0-0.8) 10/16/18 21:42 Eos # 0.1 K/mm3 (0.0-0.4) 10/16/18 21:42 Baso # 0.1 K/mm3 (0.0-0.1) 10/16/18 21:42 Seg Neutrophils % 73.1 % (40.0-70.0) H 10/16/18 21:42 Seg Neutrophils # 7.5 K/mm3 (1.8-7.7) 10/16/18 21:42 PT 14.8 Sec. (12.2-14.9) 10/16/18 21:42 INR 1.09 (0.87-1.13) 10/16/18 21:42 APTT 25.8 Sec. (24.2-36.6) 10/16/18 21:42 POC ABG pH 7.431 (7.35-7.45) 10/16/18 23:17 POC ABG pCO2 53.2 (35-45) H 10/16/18 23:17 POC ABG HCO3 35.4 (22-26 mml/L) 10/16/18 23:17 POC ABG Total CO2 37 (23-27mmol/L) 10/16/18 23:17 POC ABG O2 Sat 71 10/16/18 23:17 POC ABG Base Excess 11 ((-2) - (+3)mmol/L) 10/16/18 23:17 FiO2 28 % 10/16/18 23:17 Sodium 141 mmol/L (137-145) 10/16/18 21:42 Potassium 3.6 mmol/L (3.6-5.0) 10/16/18 21:42 Chloride 95.8 mmol/L (98-107) L 10/16/18 21:42 Carbon Dioxide 36 mmol/L (22-30) H 10/16/18 21:42 Anion Gap 13 mmol/L 10/16/18 21:42 BUN 20 mg/dL (7-17) H 10/16/18 21:42 Creatinine 1.2 mg/dL (0.7-1.2) 10/16/18 21:42 Estimated GFR 56 ml/min 10/16/18 21:42 BUN/Creatinine Ratio 17 % 10/16/18 21:42 Glucose 160 mg/dL (65-100) H 10/16/18 21:42 POC Glucose 391 (70-105) H 10/17/18 11:48 Lactic Acid 1.70 mmol/L (0.7-2.0) 10/16/18 21:42 Calcium 9.0 mg/dL (8.4-10.2) 10/16/18 21:42 Magnesium 1.60 mg/dL (1.7-2.3) L 10/16/18 21:42 Total Creatine Kinase 70 units/L (30-135) 10/16/18 21:42 Troponin T < 0.010 ng/mL (0.00-0.029) 10/17/18 06:27 NT-Pro-B Natriuret Pep 466.5 pg/mL (0-900) 10/16/18 21:42 Urine Color Yellow (Yellow) 10/16/18 22:11 Urine Turbidity Cloudy (Clear) 10/16/18 22:11 Urine pH 5.0 (5.0-7.0) 10/16/18 22:11 Ur Specific [place] 1.023 (1.003-1.030) 10/16/18 22:11 Urine Protein <15 mg/dl mg/dL (Negative) 10/16/18 22:11 Urine Glucose (UA) Neg mg/dL (Negative) 10/16/18 22:11 Urine Ketones Neg mg/dL (Negative) 10/16/18 22:11 Urine Blood Sm (Negative) 10/16/18 22:11 Urine Nitrite Pos (Negative) 10/16/18 22:11 Urine Bilirubin Neg (Negative) 10/16/18 22:11 Urine Urobilinogen 4.0 mg/dL (<2.0) 10/16/18 22:11 Ur Leukocyte Esterase Lg (Negative) 10/16/18 22:11 Urine WBC (Auto) > 182.0 /HPF (0.0-6.0) H 10/16/18 22:11 Urine RBC (Auto) 4.0 /HPF (0.0-6.0) 10/16/18 22:11 Urine Bacteria (Auto) 2+ /HPF (Negative) 10/16/18 22:11 Urine WBC Clumps 2+ /HPF 10/16/18 22:11 Hyaline Casts 12 /LPF 10/16/18 22:11 Urine Mucus Few /HPF 10/16/18 22:11 Active Medications - Current Medications Current Medications: Generic Name Dose Route Start Last Admin Trade Name Freq PRN Reason Stop Dose Admin Albuterol/Ipratropium 1 ampul 10/17/18 08:00 10/17/18 13:05 Duoneb *Not For Prn Use* IH 1 ampul Q6HRT GREY Administration Amlodipine Besylate 5 mg 10/17/18 10:00 10/17/18 09:44 Norvasc PO 5 mg DAILY [facility] Administration Aspirin 81 mg 10/17/18 10:00 10/17/18 09:41 Baby Aspirin PO 81 mg DAILY [facility] Administration Atorvastatin Calcium 40 mg 10/17/18 22:00 Lipitor PO QHS [facility]Y Carvedilol 25 mg 10/17/18 10:00 10/17/18 09:43 Coreg PO 25 mg BID [facility]Y Administration Clopidogrel Bisulfate 75 mg 10/17/18 10:00 10/17/18 09:41 Plavix PO 75 mg DAILY [facility] Administration Dextrose 50 ml 10/17/18 03:56 D50w (25gm) Syringe IV PRN PRN Hypoglycemia Docusate Sodium 100 mg 10/17/18 10:00 10/17/18 09:43 Colace PO 100 mg BID [facility] Administration Ezetimibe 10 mg 10/17/18 10:00 10/17/18 09:43 Zetia PO 10 mg QDAY [facility] Administration Famotidine 20 mg 10/17/18 10:00 10/17/18 09:42 Pepcid PO 20 mg DAILY [facility] Administration Furosemide 40 mg 10/17/18 06:53 10/17/18 07:14 Lasix IV 40 mg 0600,1800 GREY Administration Hydralazine HCl 50 mg 10/17/18 10:00 10/17/18 09:42 Apresoline PO 50 mg BID [facility] Administration Insulin Human Lispro 0 unit 10/17/18 07:30 10/17/18 12:14 Humalog SUB-Q 4 unit AC [facility] Administration Protocol Isosorbide Mononitrate 30 mg 10/17/18 10:00 10/17/18 09:43 Imdur PO 30 mg DAILY [facility] Administration Metolazone 5 mg 10/17/18 10:00 10/17/18 09:34 Zaroxolyn PO 5 mg DAILY [facility] Administration Oxycodone HCl 5 mg 10/17/18 10:00 10/17/18 09:42 Roxicodone PO 5 mg BID [facility] Administration Prednisone 10 mg 10/17/18 10:00 10/17/18 09:43 Deltasone PO 10 mg QDAY [facility]Y Administration
[2018-10-17] MEDS ORDERED: VANCOMYCIN PHARMACY TO DOSE IV SCH (19:00)
[2018-10-17] MEDS: VANCOMYCIN 1,500 MG in NACL 0.9% 500 ML 500 ML IV SCH (20:00)
--- NOTE | 2018-10-17 20:22 | Vascular Lab Report ---
PROCEDURE: VL VENOUS DUPLEX LE BILAT TECHNIQUE: Duplex Doppler sonography of the BILATERAL lower extremity deep veins. Bae scale imaging with and without compression, spectral waveform analysis with and without augmentation, and color fl ow Doppler were employed. HISTORY: right leg pains, leg swelling COMPARISONS: None FINDINGS: RIGHT UPPER EXTREMITY: Deep Venous Thrombus: None Soft tissue abnormality: None LEFT UPPER EXTREMITY: Deep Venous Thrombus: None Soft tissue abnormality: None IMPRESSION: No evidence of deep venous thrombosis bilateral lower extremities This document is electronically signed by Carson Altman MD., October 17 2018 08:20:32 PM ET
[2018-10-17] MEDS: RESTORIL PO SCH (21:45)
[2018-10-17] MEDS: LANTUS SUB-Q SCH (21:47)
[2018-10-17] MEDS ORDERED: INSULIN GLARGINE SQ SCH (22:00)
[2018-10-18] MEDS: LASIX IV SCH ×2 (06:13→18:36)
[2018-10-18 06:35] LABS: Hematocrit 32.4 % (30.3-42.9); Hemoglobin 10.3 gm/dl (10.1-14.3); Mean Corpuscular HGB Conc 32 % (30-34); Mean Corpuscular Volume 87 fl (79-97); Platelet Count 306 K/mm3 (140-440); Red Blood Count 3.73 M/mm3 (3.65-5.03); Red Cell Distribution Width 14.4 % (13.2-15.2)
[2018-10-18 07:04] LABS: Calcium 8.6 mg/dL (8.4-10.2)
[2018-10-18] MEDS: DUONEB *Not for PRN Use IH SCH ×3 (07:49→20:52)
[2018-10-18] MEDS: VANCOMYCIN 1,500 MG in NACL 0.9% 500 ML 500 ML IV SCH ×2 (08:00→21:57)
[2018-10-18] MEDS: APRESOLINE PO SCH ×2 (10:04→22:13)
[2018-10-18] MEDS: ZETIA PO SCH (10:04)
[2018-10-18] MEDS: ROXICODONE PO SCH ×2 (10:04→22:14)
[2018-10-18] MEDS: DELTASONE PO SCH (10:04)
[2018-10-18] MEDS: PLAVIX PO SCH (10:04)
[2018-10-18] MEDS: ZAROXOLYN PO SCH (10:04)
[2018-10-18] MEDS: BABY ASPIRIN PO SCH (10:04)
[2018-10-18] MEDS: COLACE PO SCH ×2 (10:04→22:00)
[2018-10-18] MEDS: COREG PO SCH ×2 (10:05→22:14)
[2018-10-18] MEDS: IMDUR PO SCH (10:05)
[2018-10-18] MEDS: NORVASC PO SCH (10:05)
[2018-10-18] MEDS: PEPCID PO SCH (10:05)
[2018-10-18] MEDS: HumaLOG SUB-Q SCH ×4 (10:16→22:13)
[2018-10-18] MEDS: RESTORIL PO SCH (22:12)
[2018-10-18] MEDS: LANTUS SUB-Q SCH (22:12)
[2018-10-19] MEDS: LASIX IV SCH ×2 (06:34→17:29)
[2018-10-19] MEDS: DUONEB *Not for PRN Use IH SCH ×3 (07:13→20:07)
[2018-10-19] MEDS: VANCOMYCIN 1,500 MG in NACL 0.9% 500 ML 500 ML IV SCH ×2 (09:30→21:40)
[2018-10-19] MEDS: NORVASC PO SCH (09:52)
[2018-10-19] MEDS: BABY ASPIRIN PO SCH (09:52)
[2018-10-19] MEDS: IMDUR PO SCH (09:52)
[2018-10-19] MEDS: ZAROXOLYN PO SCH (09:52)
[2018-10-19] MEDS: COREG PO SCH ×2 (09:52→21:43)
[2018-10-19] MEDS: PLAVIX PO SCH (09:52)
[2018-10-19] MEDS: APRESOLINE PO SCH ×2 (09:52→21:41)
[2018-10-19] MEDS: ZETIA PO SCH (09:52)
[2018-10-19] MEDS: PEPCID PO SCH (09:53)
[2018-10-19] MEDS: DELTASONE PO SCH (09:53)
[2018-10-19] MEDS: ROXICODONE PO SCH ×2 (09:53→21:42)
[2018-10-19] MEDS: COLACE PO SCH ×2 (09:53→21:43)
[2018-10-19] MEDS: HumaLOG SUB-Q SCH ×4 (09:54→22:21)
--- NOTE | 2018-10-19 13:43 | Progress Note ---
Assessment and Plan Patient is a 58 yo woman with a history of chronic hypoxic respiratory failure on 2 lCOPD, CHF, DM, HTN, Morbid obesity and Diastolic CHF who is currently in Hospice who presented with sob, leg swelling. Pt says she fell days ago and that her Rt knee hurt then but its better and she is able to bend it. She says she was on BID Lasix dosing but it was changed to QDay dosing for reasons unknown to her. Today, she alleges her weight is 352 pds but usually she is 323 pds. * Chart review show a TTecho 05/24/15 with EF of 50%, abnormal relaxation was present. Normal LV Systolic function. * pCXR IMPRESSION: Mild degree cardiomegaly with pulmonary venous congestion are suggestive of CHF. Left lower lung and left costophrenic angle are obscured by the cardiac shadow. Any underlying infiltrates or left pleural effusion cannot be excluded. A two-view chest study is recommended whennever the patient's condition permits.. * CTA chest IMPRESSION: There is no evidence of pulmonary arterial emboli. There is slight atelectasis in both lower lungs. . - Acute on chronic diastolic (congestive) heart failure: treat with iv lasix bid Continue bronchodilators, supplemental oxygen, IV Solu-Medrol. BNP was normal at 466.5 Hx of COPD, stable -continue Duonebs. - Hypomagnesemia-Corrected - HTN: Optimize and oral antihypertensive, - T2DM Continue sliding scale insulin - Morbid Obesity, Dietary consult - Dyslipidemia with supplements On statins - Right lower leg pain with dark abrasion/ecchymosis s/p fall: xray leg - Should no fracture or dislocation. Heeling of old fracture identified Local wound care. No acute fractures or dislocation Subjective Date of service: 10/19/18 Principal diagnosis: Acute hypercapneic respiratory faioure, COPD exercebation, T2DM Interval history: Patient seen and examined. Denies any chest pain. Still having shortness of breath Objective - Exam Narrative Exam: Constitutional: Morbidly obese. Well-nourished well-developed. Head: Normocephalic atraumatic Eyes: Pupils are equal round and reactive to light Nose: No enlarged turbinates, no septal deviation. Mouth: Moist mucous membranes. Neck: Supple no thyromegaly. No bruit. No JVD Heart: Regular rate and rhythm, S1-S2 normal. No rubs murmurs or gallop Lungs: Decreased breath sounds bilaterally. no rales or rhonchi Abdomen: Soft, nontender. Bowel sound are present. Extremities: Trace edema, no cyanosis, no clubbing. Neuro: Alert oriented Oriented x3. No focal sensory or motor deficit. Skin: No rashes or hyperpigmented spots Musculoskeletal system: No joint pain or swelling Hematological: No petechia or subcutanous hemorrhages. Immunological: No multiple septic spots on the skin Lymphatic: No generalized lymphadenopathy Psychiatry: Euthymic. Calm. - Constitutional Vitals: Vital Signs - 12hr 10/19/18 10/19/18 10/19/18 05:40 07:13 07:23 Temperature 98.1 F Pulse Rate 72 Pulse Rate [ 60 62 Bilateral Throughout] Respiratory 22 Rate Respiratory 20 20 Rate [Bilateral Throughout] Blood Pressure 142/77 O2 Sat by Pulse 99 99 Oximetry 10/19/18 10/19/18 07:48 10:00 Temperature 98.2 F Pulse Rate 63 65 Pulse Rate [ Bilateral Throughout] Respiratory 18 22 Rate Respiratory Rate [Bilateral Throughout] Blood Pressure 140/70 O2 Sat by Pulse 96 98 Oximetry - Labs CBC & Chem 7: 10/18/18 06:05 10/18/18 06:05 Labs: Abnormal lab results 10/18/18 10/18/18 10/19/18 Range/Units 16:52 21:40 07:55 POC Glucose 281 H 235 H 131 H (70-105)
--- NOTE | 2018-10-19 14:00 | Progress Note ---
Assessment and Plan Patient is a 58 yo woman with a history of chronic hypoxic respiratory failure on 2 lCOPD, CHF, DM, HTN, Morbid obesity and Diastolic CHF who is currently in Hospice who presented with sob, leg swelling. Pt says she fell days ago and that her Rt knee hurt then but its better and she is able to bend it. She says she was on BID Lasix dosing but it was changed to QDay dosing for reasons unknown to her. Today, she alleges her weight is 352 pds but usually she is 323 pds. * Chart review show a TTecho 05/24/15 with EF of 50%, abnormal relaxation was present. Normal LV Systolic function. * pCXR IMPRESSION: Mild degree cardiomegaly with pulmonary venous congestion are suggestive of CHF. Left lower lung and left costophrenic angle are obscured by the cardiac shadow. Any underlying infiltrates or left pleural effusion cannot be excluded. A two-view chest study is recommended whennever the patient's condition permits.. * CTA chest IMPRESSION: There is no evidence of pulmonary arterial emboli. There is slight atelectasis in both lower lungs. . - Acute on chronic diastolic (congestive) heart failure: treat with iv lasix bid Continue bronchodilators, supplemental oxygen, IV Solu-Medrol. BNP was normal at 466.5 Hx of COPD, stable -continue Duonebs. - Hypomagnesemia-Corrected - HTN: Optimize and oral antihypertensive, - T2DM Continue sliding scale insulin - Morbid Obesity, Dietary consult - Dyslipidemia with supplements On statins - Check am labs - Right lower leg pain with dark abrasion/ecchymosis s/p fall: xray leg - Should no fracture or dislocation. Heeling of old fracture identified Local wound care. No acute fractures or dislocation Subjective Date of service: 10/18/18 Principal diagnosis: Acute hypercapneic respiratory faioure, COPD exercebation, T2DM Interval history: Patient seen and examined. Denies any chest pain. Still having shortness of breath. No fever Objective - Exam Narrative Exam: Constitutional: Morbidly obese. Well-nourished well-developed. Head: Normocephalic atraumatic Eyes: Pupils are equal round and reactive to light Nose: No enlarged turbinates, no septal deviation. Mouth: Moist mucous membranes. Neck: Supple no thyromegaly. No bruit. No JVD Heart: Regular rate and rhythm, S1-S2 normal. No rubs murmurs or gallop Lungs: Decreased breath sounds bilaterally. no rales or rhonchi Abdomen: Soft, nontender. Bowel sound are present. Extremities: Trace edema, no cyanosis, no clubbing. Neuro: Alert oriented Oriented x3. No focal sensory or motor deficit. Skin: No rashes or hyperpigmented spots Musculoskeletal system: No joint pain or swelling Hematological: No petechia or subcutanous hemorrhages. Immunological: No multiple septic spots on the skin Lymphatic: No generalized lymphadenopathy Psychiatry: Euthymic. Calm. - Constitutional Vitals: Vital Signs - 12hr 10/19/18 10/19/18 10/19/18 05:40 07:13 07:23 Temperature 98.1 F Pulse Rate 72 Pulse Rate [ 60 62 Bilateral Throughout] Respiratory 22 Rate Respiratory 20 20 Rate [Bilateral Throughout] Blood Pressure 142/77 O2 Sat by Pulse 99 99 Oximetry 10/19/18 10/19/18 07:48 10:00 Temperature 98.2 F Pulse Rate 63 65 Pulse Rate [ Bilateral Throughout] Respiratory 18 22 Rate Respiratory Rate [Bilateral Throughout] Blood Pressure 140/70 O2 Sat by Pulse 96 98 Oximetry - Labs CBC & Chem 7: 10/18/18 06:05 10/18/18 06:05 Labs: Abnormal lab results 10/18/18 10/18/18 10/19/18 Range/Units 16:52 21:40 07:55 POC Glucose 281 H 235 H 131 H (70-105) 10/19/18 Range/Units 12:29 POC Glucose 197 H (70-105)
[2018-10-19] MEDS: LOVENOX SUB-Q SCH (21:37)
[2018-10-19] MEDS: RESTORIL PO SCH (21:42)
[2018-10-19] MEDS: LANTUS SUB-Q SCH (22:21)
[2018-10-20] MEDS: LASIX IV SCH ×2 (05:30→17:46)
[2018-10-20 06:11] LABS: Basophils % (Auto) 0.3 % (0.0-1.8); Eosinophils # (Auto) 0.2 K/mm3 (0.0-0.4); Eosinophils % (Auto) 2.4 % (0.0-4.3); Hematocrit 33.5 % (30.3-42.9); Hemoglobin 10.8 gm/dl (10.1-14.3); Lymphocytes # (Auto) 1.7 K/mm3 (1.2-5.4); Lymphocytes % (Auto) 17.9 % (13.4-35.0); Mean Corpuscular HGB Conc 32 % (30-34); Mean Corpuscular Volume 87 fl (79-97); Monocytes # (Auto) 0.7 K/mm3 (0.0-0.8); Monocytes % (Auto) 7.3 % (0.0-7.3); Platelet Count 304 K/mm3 (140-440); Red Blood Count 3.85 M/mm3 (3.65-5.03)
[2018-10-20 06:33] LABS: Alanine Aminotransferase 10 units/L (7-56); Albumin 3.5 g/dL (3.9-5); BUN/Creatinine Ratio 26; Blood Urea Nitrogen 29 mg/dL (7-17); Calcium 8.6 mg/dL (8.4-10.2); Hemolysis Index 5
[2018-10-20] MEDS: DUONEB *Not for PRN Use IH SCH ×3 (08:57→19:54)
[2018-10-20] MEDS: PLAVIX PO SCH (09:21)
[2018-10-20] MEDS: IMDUR PO SCH (09:22)
[2018-10-20] MEDS: DELTASONE PO SCH (09:22)
[2018-10-20] MEDS: COREG PO SCH ×2 (09:22→21:40)
[2018-10-20] MEDS: ZAROXOLYN PO SCH (09:22)
[2018-10-20] MEDS: PEPCID PO SCH (09:22)
[2018-10-20] MEDS: ROXICODONE PO SCH ×2 (09:22→21:40)
[2018-10-20] MEDS: BABY ASPIRIN PO SCH (09:22)
[2018-10-20] MEDS: NORVASC PO SCH (09:22)
[2018-10-20] MEDS: ZETIA PO SCH (09:23)
[2018-10-20] MEDS: HumaLOG SUB-Q SCH ×4 (09:23→21:39)
[2018-10-20] MEDS: COLACE PO SCH ×2 (09:23→21:40)
--- NOTE | 2018-10-20 09:42 | Progress Note ---
Assessment and Plan Patient is a 58 yo woman with a history of chronic hypoxic respiratory failure on 2 COPD, CHF, DM, HTN, Morbid obesity and Diastolic CHF who is currently in Hospice who presented with sob, leg swelling. Pt says she fell days ago and that her Rt knee hurt then but its better and she is able to bend it. She says she was on BID Lasix dosing but it was changed to QDay dosing for reasons unknown to her. Today, she alleges her weight is 352 pds but usually she is 323 pds. * Chart review show an Echo 05/24/15 with EF of 50%, abnormal relaxation was present. Normal LV Systolic function. * pCXR IMPRESSION: Mild degree cardiomegaly with pulmonary venous congestion are suggestive of CHF. Left lower lung and left costophrenic angle are obscured by the cardiac shadow. Any underlying infiltrates or left pleural effusion cannot be excluded. A two-view chest study is recommended whennever the patient's condition permits.. * CTA chest IMPRESSION: There is no evidence of pulmonary arterial emboli. There is slight atelectasis in both lower lungs. . - Acute on chronic diastolic (congestive) heart failure: treat with iv lasix bid Continue bronchodilators, supplemental oxygen, IV Solu-Medrol. BNP was normal at 466.5 -Hx of COPD, stable continue Duonebs. - Hypomagnesemia-Corrected - HTN: Optimize and oral antihypertensive, - T2DM Continue sliding scale insulin - Morbid Obesity, Dietary consult - Dyslipidemia with supplements On statins - Check am labs - Right lower leg pain with dark abrasion/ecchymosis s/p fall: xray leg - Should no fracture or dislocation. Heeling of old fracture identified Local wound care. No acute fractures or dislocation. Radha steinberg Subjective Date of service: 10/20/18 Principal diagnosis: Acute hypercapneic respiratory faioure, COPD exercebation, T2DM Interval history: Patient seen and examined. Denies any chest pain. Still having shortness of breath. No fever. no chest pain. Objective - Exam Narrative Exam: Constitutional: Morbidly obese. Well-nourished well-developed. Head: Normocephalic atraumatic Eyes: Pupils are equal round and reactive to light Nose: No enlarged turbinates, no septal deviation. Mouth: Moist mucous membranes. Neck: Supple no thyromegaly. No bruit. No JVD Heart: Regular rate and rhythm, S1-S2 normal. No rubs murmurs or gallop Lungs: Decreased breath sounds bilaterally. no rales or rhonchi Abdomen: Soft, nontender. Bowel sound are present. Extremities: Trace edema, no cyanosis, no clubbing. Neuro: Alert oriented Oriented x3. No focal sensory or motor deficit. Skin: No rashes or hyperpigmented spots Musculoskeletal system: No joint pain or swelling Hematological: No petechia or subcutanous hemorrhages. Immunological: No multiple septic spots on the skin Lymphatic: No generalized lymphadenopathy Psychiatry: Euthymic. Calm. - Constitutional Vitals: Vital Signs - 12hr 10/19/18 10/19/18 10/19/18 21:41 21:43 21:45 Temperature Pulse Rate 73 73 Respiratory Rate Blood Pressure 136/62 136/62 O2 Sat by Pulse 96 Oximetry 10/19/18 10/19/18 10/20/18 22:00 23:54 05:53 Temperature 98.2 F 98.3 F Pulse Rate 74 67 Respiratory 22 22 Rate Blood Pressure 142/70 146/69 O2 Sat by Pulse 96 95 95 Oximetry 10/20/18 10/20/18 08:02 08:57 Temperature 98.4 F Pulse Rate 64 Respiratory 20 Rate Blood Pressure 136/64 O2 Sat by Pulse 99 100 Oximetry - Labs CBC & Chem 7: 10/20/18 05:17 10/20/18 05:17 Labs: Abnormal lab results 10/19/18 10/19/18 10/19/18 Range/Units 12:29 16:26 21:50 Seg Neutrophils % (40.0-70.0) % Potassium (3.6-5.0) mmol/L Chloride (98-107) mmol/L Carbon Dioxide (22-30) mmol/L BUN (7-17) mg/dL Glucose (65-100) mg/dL POC Glucose 197 H 321 H 337 H (70-105) Albumin (3.9-5) g/dL 10/20/18 10/20/18 10/20/18 Range/Units 05:17 05:17 08:10 Seg Neutrophils % 72.1 H (40.0-70.0) % Potassium 3.0 L D (3.6-5.0) mmol/L Chloride 93.2 L (98-107) mmol/L Carbon Dioxide 39 H D (22-30) mmol/L BUN 29 H (7-17) mg/dL Glucose 177 H (65-100) mg/dL POC Glucose 158 H (70-105) Albumin 3.5 L (3.9-5) g/dL
[2018-10-20] MEDS: APRESOLINE PO SCH ×2 (09:47→21:40)
[2018-10-20] MEDS ORDERED: K-DUR PO ONE (10:30)
[2018-10-20] MEDS: KCL 10MEQ/100ML 10 MEQ/100 ML BAG IV SCH ×3 (12:05→15:43)
--- NOTE | 2018-10-20 13:32 | Consultation ---
History of Present Illness - [facility] Consult date: 10/20/18 Consult reason: other History of present illness: 58 y/o female with c/o right leg pain after fall 2 wks ago, states she's able to walk on the right leg afterward....history of DM and morbid obesity... Medications and Allergies Allergies Allergy/AdvReac Type Severity Reaction Status Date / Time SAPNA Inhibitors Allergy Angioedema Verified 07/12/16 06:20 lisinopril Allergy Angioedema Verified 07/12/16 06:20 roflumilast [From Daliresp] AdvReac cough Verified 07/12/16 06:20 Home Medications Medication Instructions Recorded Confirmed Last Taken Type Aspirin 1 tab PO DAILY 10/17/18 10/17/18 Unknown History AtorvaSTATin [Lipitor] 40 mg PO QHS 10/17/18 10/17/18 Unknown History Carvedilol 1 tab PO BID 10/17/18 10/17/18 Unknown History Clopidogrel [Plavix] 1 tab PO DAILY 10/17/18 10/17/18 Unknown History Docusate Sodium [Stool Softener] 100 mg PO BID 10/17/18 10/17/18 Unknown History Ezetimibe [Zetia] 10 mg PO QDAY 10/17/18 10/17/18 Unknown History Famotidine 20 mg PO DAILY 10/17/18 10/17/18 Unknown History Furosemide [Lasix TAB] 1 tab PO DAILY 10/17/18 10/17/18 Unknown History Hydralazine HCl 1 tab PO BID 10/17/18 10/17/18 Unknown History Insulin Aspart [NovoLOG 100 See Protocol SQ ACHS 10/17/18 10/17/18 Unknown History UNITS/ML VIAL] Isosorbide Dinitrate 1 tab PO DAILY 10/17/18 10/17/18 Unknown History Lantus VIAL 36 units SQ HS 10/17/18 10/17/18 10/15/18 22:00 History Potassium 1 tab PO DAILY 10/17/18 10/17/18 Unknown History Temazepam 15 mg PO HS 10/17/18 10/17/18 Unknown History amLODIPine [Norvasc] 5 mg PO DAILY 10/17/18 10/17/18 Unknown History metOLazone [Metolazone] 1 tab PO DAILY 10/17/18 10/17/18 Unknown History oxyCODONE [Roxicodone] 5 mg PO BID 10/17/18 10/17/18 Unknown History predniSONE [Prednisone] 10 mg PO DAILY 10/17/18 10/17/18 Unknown History Active Meds: Active Medications Albuterol/Ipratropium (Duoneb *Not For Prn Use*) 1 ampul IH TIDRT [facility] Last Admin: 10/20/18 08:57 Dose: Not Given Documented by: Amlodipine Besylate (Norvasc) 5 mg PO DAILY [facility] Last Admin: 10/20/18 09:22 Dose: 5 mg Documented by: Aspirin (Baby Aspirin) 81 mg PO DAILY [facility] Last Admin: 10/20/18 09:22 Dose: 81 mg Documented by: Atorvastatin Calcium (Lipitor) 40 mg PO QHS [facility] Last Admin: 10/19/18 21:43 Dose: 40 mg Documented by: Carvedilol (Coreg) 25 mg PO BID [facility] Last Admin: 10/20/18 09:22 Dose: 25 mg Documented by: Clopidogrel Bisulfate (Plavix) 75 mg PO DAILY [facility] Last Admin: 10/20/18 09:21 Dose: 75 mg Documented by: Dextrose (D50w (25gm) Syringe) 50 ml IV PRN PRN PRN Reason: Hypoglycemia Docusate Sodium (Colace) 100 mg PO BID [facility] Last Admin: 10/20/18 09:23 Dose: 100 mg Documented by: Ezetimibe (Zetia) 10 mg PO QDAY [facility] Last Admin: 10/20/18 09:23 Dose: 10 mg Documented by: Enoxaparin Sodium (Lovenox) 40 mg SUB-Q QDAY@2200 [facility] Last Admin: 10/19/18 21:37 Dose: 40 mg Documented by: Famotidine (Pepcid) 20 mg PO DAILY [facility] Last Admin: 10/20/18 09:22 Dose: 20 mg Documented by: Furosemide (Lasix) 40 mg IV 0600,1800 [facility] Last Admin: 10/20/18 05:30 Dose: 40 mg Documented by: Hydralazine HCl (Apresoline) 50 mg PO BID [facility] Last Admin: 10/20/18 09:47 Dose: 50 mg Documented by: Potassium Chloride (Kcl 10meq/100ml) 10 meq in 100 mls @ 100 mls/hr IV Q1H [facility] Stop: 04/15/19 13:59 Last Admin: 10/20/18 12:05 Dose: 100 mls/hr Documented by: Insulin Glargine (Lantus) 36 units SUB-Q QHS [facility] Last Admin: 10/19/18 22:21 Dose: 36 units Documented by: Insulin Human Lispro (Humalog) 0 unit SUB-Q ACHS [facility]; Protocol Last Admin: 10/20/18 12:05 Dose: 3 unit Documented by: Isosorbide Mononitrate (Imdur) 30 mg PO DAILY [facility] Last Admin: 10/20/18 09:22 Dose: 30 mg Documented by: Metolazone (Zaroxolyn) 5 mg PO DAILY [facility] Last Admin: 10/20/18 09:22 Dose: 5 mg Documented by: Oxycodone HCl (Roxicodone) 5 mg PO BID [facility] Last Admin: 10/20/18 09:22 Dose: 5 mg Documented by: Prednisone (Deltasone) 10 mg PO QDAY [facility] Last Admin: 10/20/18 09:22 Dose: 10 mg Documented by: Temazepam (Restoril) 15 mg PO [facility] Last Admin: 10/19/18 21:42 Dose: 15 mg Documented by: Physical Examination - Physical exam Narrative exam: right lower extremity - no obvious deformity, slightly tender along lateral border leg, good passive ROm at knee and ankle joints Plain xrays right leg reviewed by me and show no acute bony injury, old fracture noted proximal third fibula Eyes: PERRL ENT: Positive: clear oral mucosa Respiratory effort: normal Respiratory: bilateral: CTA Rhythm: regular Heart Sounds: Positive: S1 & S2 General gastrointestinal: Positive: soft, non-tender, non-distended, normal bowel sounds Integumentary: clear, warm, dry Neurologic: Positive: CNII-XII intact, moves all extremities, gait normal. Negative: focal deficits Assessment and Plan Right leg pain, most likely sprain recommend continue PT
[2018-10-20] MEDS: LANTUS SUB-Q SCH (21:38)
[2018-10-20] MEDS: LOVENOX SUB-Q SCH (21:39)
[2018-10-20] MEDS: RESTORIL PO SCH (21:40)
[2018-10-21] MEDS ORDERED: APRESOLINE IV PRN (00:12)
[2018-10-21] MEDS: LASIX IV SCH (05:45)
[2018-10-21 06:57] LABS: Basophils % (Auto) 0.4 % (0.0-1.8); Eosinophils # (Auto) 0.2 K/mm3 (0.0-0.4); Eosinophils % (Auto) 2.2 % (0.0-4.3); Hematocrit 33.9 % (30.3-42.9); Hemoglobin 10.9 gm/dl (10.1-14.3); Lymphocytes # (Auto) 2.1 K/mm3 (1.2-5.4); Lymphocytes % (Auto) 18.8 % (13.4-35.0); Mean Corpuscular HGB Conc 32 % (30-34); Mean Corpuscular Volume 86 fl (79-97); Monocytes # (Auto) 0.7 K/mm3 (0.0-0.8); Monocytes % (Auto) 6.4 % (0.0-7.3); Platelet Count 322 K/mm3 (140-440); Red Blood Count 3.92 M/mm3 (3.65-5.03); Red Cell Distribution Width 14.1 % (13.2-15.2)
[2018-10-21 07:29] LABS: Alanine Aminotransferase 9 units/L (7-56); Albumin 3.7 g/dL (3.9-5); BUN/Creatinine Ratio 27; Blood Urea Nitrogen 30 mg/dL (7-17); Calcium 9.2 mg/dL (8.4-10.2); Hemolysis Index 51
[2018-10-21] MEDS: DUONEB *Not for PRN Use IH SCH ×2 (08:30→13:23)
[2018-10-21] MEDS: HumaLOG SUB-Q SCH ×2 (09:02→13:16)
[2018-10-21] MEDS: PLAVIX PO SCH (09:03)
[2018-10-21] MEDS: ZAROXOLYN PO SCH (09:03)
[2018-10-21] MEDS: ZETIA PO SCH (09:03)
[2018-10-21] MEDS: COLACE PO SCH (09:04)
[2018-10-21] MEDS: DELTASONE PO SCH (09:04)
[2018-10-21] MEDS: APRESOLINE PO SCH (09:05)
[2018-10-21] MEDS: COREG PO SCH (09:06)
[2018-10-21] MEDS: BABY ASPIRIN PO SCH (09:06)
[2018-10-21] MEDS: IMDUR PO SCH (09:06)
[2018-10-21] MEDS: ROXICODONE PO SCH (09:07)
[2018-10-21] MEDS: NORVASC PO SCH (09:07)
[2018-10-21] MEDS: PEPCID PO SCH (09:07)
--- NOTE | 2018-10-21 09:26 | Discharge Summary ---
Providers - Providers Date of Admission: 10/20/18 10:53 Date of discharge: 10/21/18 Attending physician: MIGUEL GODINEZ 10/17/18 03:59 Occupational Therapy Evaluate and Treat [CONS] Routine Comment: Reason For Exam: deconditioning Physical Therapy Evaluation and Treat [CONS] Routine Comment: Reason For Exam: deconditioning 10/17/18 15:10 Consult to Physician [CONS] Routine Comment: spoke with bryn at the office 10/20/18 1894 Consulting Provider: BEBO SQUIRES Physician Instructions: Reason For Exam: right leg fracture Primary care physician: MAG THAPA Hospitalization Reason for admission: shortness of breath, pedal edema Condition: Fair Pertinent studies: Chest x-ray that showed evidence of pulmonic congestion CT angiography chest that shows no pulmonary embolism History of the right leg that showed healing fibular fracture Procedures: None Hospital course: Patient is a 58 lady with history of COPD, CHF, DM, HTN, Morbid obesity, Diastolic CHF who is currently on Hospice at a Private care facility was sent to [facility] for LE edema, SOB and general weakness in the last few days. Pt fell weeks ago and that her Rt knee hurt then but its better and she is able to bend it. Ambulates since after the fall. She says she was on BID Lasix dosing but it was changed to Qday dosing for it causes urinary incontinence. Today, she alleges her weight is 352 pds but usually she is 323 pds. She denies any CP, jaw or chin pain, orthopnea, PND, Dysuria,polyuria, fever, chills, or phlegm production. She is non ambulatory she reports but she states she can put weight on her legs. On admission chest x-ray shows evidence of pulmonary congestion, CT angios was negative for PE. X-ray of the right leg showed healing fracture of the right tibia. ProBNP was normal. Chart review show a TT Echo 05/24/15 with EF of 50%, abnormal relaxation was present. Normal LV Systolic function. She was commenced on diuresis, bronchodilators, and resumed on appropriate medications including insulin. Develop hypokalemia was corrected appreciably. Potassium is 2.5 today I will be discharged with by mouth home potassium. Had slight leukocytosis today with no fever or cough. She is anxious to be discharged. We'll be discharging her today with by mouth Levaquin. Condition on discharge is satisfactory Disposition: [id number]/[id number] [facility] Time spent for discharge: 40 minutes - Discharge Diagnoses (1) Acute exacerbation of chronic obstructive pulmonary disease (COPD) Status: Acute (2) Acute on chronic diastolic (congestive) heart failure Status: Acute (3) Atypical chest pain Status: Acute (4) Morbid obesity with body mass index of 40.0-49.9 Status: Chronic (5) Sleep disorder breathing Status: Chronic (6) Acute and chronic respiratory failure ([id number]) Status: Acute Core Measure Documentation - Palliative Care Palliative Care/ Comfort Measures: Not Applicable - Core Measures Any of the following diagnoses?: none Exam - Physical Exam Narrative exam: Constitutional: Morbidly obese. Well-nourished well-developed. Head: Normocephalic atraumatic Eyes: Pupils are equal round and reactive to light Nose: No enlarged turbinates, no septal deviation. Mouth: Moist mucous membranes. Neck: Supple no thyromegaly. No bruit. No JVD Heart: Regular rate and rhythm, S1-S2 normal. No rubs murmurs or gallop Lungs: Decreased breath sounds bilaterally. no rales or rhonchi Abdomen: Soft, nontender. Bowel sound are present. Extremities: No edema, no cyanosis, no clubbing. Slightly tender on the right leg middle third Neuro: Alert oriented Oriented x3. No focal sensory or motor deficit. Skin: No rashes or hyperpigmented spots Musculoskeletal system: No joint pain or swelling Hematological: No petechia or subcutanous hemorrhages. Immunological: No multiple septic spots on the skin Lymphatic: No generalized lymphadenopathy Psychiatry: Euthymic. Calm. - Constitutional Vitals: Temp Pulse Resp BP Pulse Ox 98.0 F 70 20 133/60 100 10/21/18 07:59 10/21/18 07:59 10/21/18 07:59 10/21/18 07:59 10/21/18 08:30 Plan Activity: advance as tolerated, fall precautions Weight Bearing Status: Non-Weight Bearing Diet: diabetic Follow up with: MAG THAPA MD [Primary Care Provider] - 3-5 Days Prescriptions: Aspirin 1 tab PO DAILY #30 tab.chew Famotidine 20 mg PO DAILY #30 tablet Hydralazine HCl 1 tab PO BID #60 tablet Potassium Chloride [Klor-Con M10] 10 meq PO DAILY #30 tab.er.prt levoFLOXacin [Levaquin] 750 mg PO QDAY #5 tablet amLODIPine [Norvasc] 5 mg PO DAILY #30 tablet
[2018-10-21 17:54] VITALS: BP 138/61
== END 2018-10-21 14:55 | disposition hospice, home (50) | DRG 291 ==
LOC: ED 20:46 → 4A 10-17 00:53 → OBSVTOIN 10-20 10:53
PROVIDERS: ADMIT Hospitalist; ATTEND Family Medicine
PROC: 4A033R1 Measurement of Arterial Saturation, Peripheral, Percutaneous Approach (ICD-10-PCS; principal; 2018-10-16)
DX: I11.0 Hypertensive heart disease with heart failure (principal); J96.21 Acute and chronic respiratory failure with hypoxia; Z68.44 Body mass index [BMI] 60.0-69.9, adult; E66.01 Morbid (severe) obesity due to excess calories; I27.20 Pulmonary hypertension, unspecified; E83.42 Hypomagnesemia; E88.81 Metabolic syndrome and other insulin resistance; J44.1 Chronic obstructive pulmonary disease with (acute) exacerbation; G47.30 Sleep apnea, unspecified; S82.201A Unspecified fracture of shaft of right tibia, initial encounter for closed fracture; W01.0XXA Fall on same level from slipping, tripping and stumbling without subsequent striking against object, initial encounter; E78.5 Hyperlipidemia, unspecified; I50.43 Acute on chronic combined systolic (congestive) and diastolic (congestive) heart failure; E11.9 Type 2 diabetes mellitus without complications; Z88.8 Allergy status to other drugs, medicaments and biological substances; Z79.82 Long term (current) use of aspirin; Z79.899 Other long term (current) drug therapy; Z79.4 Long term (current) use of insulin; I25.2 Old myocardial infarction; Z95.5 Presence of coronary angioplasty implant and graft; Z87.891 Personal history of nicotine dependence; Z99.81 Dependence on supplemental oxygen; Y93.89 Activity, other specified; Y92.098 Other place in other non-institutional residence as the place of occurrence of the external cause; Y99.8 Other external cause status; E87.6 Hypokalemia; D72.829 Elevated white blood cell count, unspecified
CPT/HCPCS: 36415; 71045; 71275; 80048; 80053; 81001; 82140; 82550; 82803; 82962; 83735; 83880; 84484; 85025; 85027; 85610; 85730; 87040; 93005; 93010; 93970; 94640; 94644; 94760; G0378; A9270-GY; J1650; J1815; J1940; J1956; J3370; J3475; J3480; J7040; J7512; Q9967

== ENCOUNTER 2019-09-03 11:47 | Emergency (ER) | payer MEDICAID, OTHER ==
--- NOTE | 2019-09-03 11:55 | Event Note ---
ED Screening Note Date of service: 09/03/19 Time: 11:53 ED Screening Note: 59 y o female presents to ED cc of abd pain and diarhea x 1 week, non stop diarhea saw Dr Maldonado today and was sent to ED cus of cc of sob This initial assessment/diagnostic orders/clinical plan/treatment(s) is/are sub ject to change based on patients health status, clinical progression and re- assessment by fellow clinical providers in the ED. Further treatment and workup at subsequent clinical providers discretion. Patient/guardian urged not to elope from the ED as their condition may be serious if not clinically assessed and managed. Initial orders include: labs main side eval
[2019-09-03 13:06] VITALS: BP 135/66
[2019-09-03 13:15] LABS: Basophils % (Auto) 0.4 % (0.0-1.8); Eosinophils % (Auto) 0.1 % (0.0-4.3); Hematocrit 37.6 % (30.3-42.9); Hemoglobin 11.8 gm/dl (10.1-14.3); Lymphocytes # (Auto) 1.3 K/mm3 (1.2-5.4); Lymphocytes % (Auto) 11.1 % (13.4-35.0); Mean Corpuscular HGB Conc 32 % (30-34); Mean Corpuscular Volume 82 fl (79-97); Monocytes # (Auto) 0.5 K/mm3 (0.0-0.8); Monocytes % (Auto) 4.5 % (0.0-7.3); Platelet Count 304 K/mm3 (140-440); Red Blood Count 4.56 M/mm3 (3.65-5.03); Red Cell Distribution Width 14.8 % (13.2-15.2)
--- NOTE | 2019-09-03 13:21 | Cat Scan Report ---
CT CHEST, ABDOMEN, AND PELVIS WITHOUT CONTRAST INDICATION: Shortness of breath with chest and abdominal pain for one day. TECHNIQUE: Axial CT images were obtained through the chest, abdomen, and pelvis without contrast. All CT scans a t this location are performed using CT dose reduction for ALARA by means of automated exposure contro l. COMPARISON: CTA chest from 10/16/2018. FINDINGS: MEDIASTINUM: Bilateral thyroid nodules are unchanged. No mass or lymphadenopathy. Heart size is leann l without a significant pericardial effusion. No other significant abnormality. THORACIC AORTA and ARTERIES: The aorta is normal in caliber and mildly calcified. There is moderate c oronary atherosclerosis. The great vessels are mildly calcified. LUNGS: Mild left basilar atelectasis is noted without an additional significant pulmonary abnormality , pneumothorax or pleural effusion. LIVER: No significant abnormality. BILIARY:No significant abnormality. PANCREAS: No significant abnormality. SPLEEN: No significant abnormality. ADRENALS: No significant abnormality. KIDNEYS AND URETERS: Possible cysts are seen along the left upper renal pole measuring up to 1.3 cm. No additional significant abnormality. GI TRACT: No significant abnormality of the stomach or small bowel. Sigmoid diverticulosis is seen wi thout evidence of ventriculitis. No additional significant abnormality of the colon. The appendix is unremarkable. PERITONEUM: No free fluid. No free air. No fluid collection. LYMPH NODES: No significant adenopathy. AORTA and ARTERIES: The aorta is normal in caliber. There is moderate generalized atherosclerosis. URINARY BLADDER: No significant abnormality. REPRODUCTIVE ORGANS: No significant abnormality. ADDITIONAL FINDINGS: None. SKELETAL SYSTEM: No acute abnormality. Degenerative changes are seen throughout the spine and along t he SI joints. IMPRESSION: 1. No acute abnormality of the chest, abdomen or pelvis. 2. Possible left renal cysts. A nonemergent renal ultrasound is recommended for further evaluation. 3. Additional findings as above. Signer Name: Gold Alva MD Signed: 09/03/2019 1:17 PM Workstation Name: [id number]
[2019-09-03 13:30] LABS: Albumin 3.7 g/dL (3.9-5); Calcium 9.5 mg/dL (8.4-10.2)
[2019-09-03] MEDS ORDERED: SODIUM CHLORIDE 0.9% 500 ML 500 ML IV ONE (13:32)
[2019-09-03] MEDS ORDERED: ONDANSETRON 4 MG/2 ML INJ IV ONE (13:32)
--- NOTE | 2019-09-03 13:32 | Emergency Department Report ---
ED Abdominal Pain HPI - General Chief Complaint: Nausea/Vomiting/Diarrhea Stated Complaint: SOB Time Seen by Provider: 09/03/19 12:54 Source: patient Mode of arrival: Ambulatory Limitations: No Limitations - History of Present Illness Initial Comments: Patient is 59 years old female with history of congestive heart failure, hypertension diabetes. Patient presented to the ER complaining of diffuse abdominal pain, nausea vomiting and diarrhea. Patient stated that diarrhea is watery no blood or mucus. Patient denied any fever or chills. Patient denied any chest pain or shortness of breath. MD Complaint: abdominal pain Severity scale (0 -10): 5 - Related Data Home Medications Medication Instructions Recorded Confirmed Last Taken AtorvaSTATin [Lipitor] 40 mg PO QHS 10/17/18 10/17/18 Unknown Clopidogrel [Plavix] 1 tab PO DAILY 10/17/18 10/17/18 Unknown Ezetimibe [Zetia] 10 mg PO QDAY 10/17/18 10/17/18 Unknown Furosemide [Lasix TAB] 1 tab PO DAILY 10/17/18 10/17/18 Unknown Insulin Aspart (Nf) [NovoLOG 100 See Protocol SQ ACHS 10/17/18 10/17/18 Unknown UNITS/ML VIAL] Lantus VIAL 36 units SQ HS 10/17/18 10/17/18 10/15/18 22:00 Potassium 1 tab PO DAILY 10/17/18 10/17/18 Unknown carvediloL [Carvedilol] 1 tab PO BID 10/17/18 10/17/18 Unknown oxyCODONE [roxiCODONE] 5 mg PO BID 10/17/18 10/17/18 Unknown Previous Rx's Medication Instructions Recorded Last Taken Type Aspirin 1 tab PO DAILY #30 tab.chew 10/21/18 Unknown Rx Docusate Sodium [Colace CAP] 100 mg PO BID capsule 10/21/18 Unknown Rx Famotidine 20 mg PO DAILY #30 tablet 10/21/18 Unknown Rx Hydralazine HCl 1 tab PO BID #60 tablet 10/21/18 Unknown Rx ISOSORBIDE MONOnitrate [Imdur ER] 30 mg PO DAILY tablet 10/21/18 Unknown Rx Insulin Glargine [Lantus VIAL] 36 units SUB-Q QHS units 10/21/18 Unknown Rx Ipratropium/Albuterol Sulfate 1 ampul IH TIDRT ampul.neb 10/21/18 Unknown Rx [DUONEB *Not for PRN Use*] Lispro Insulin [HumaLOG] 0 unit SUB-Q ACHS units 10/21/18 Unknown Rx Potassium Chloride [Klor-Con M10] 10 meq PO DAILY #30 tab.er.prt 10/21/18 Unknown Rx Temazepam [Restoril] 15 mg PO HS capsule 10/21/18 Unknown Rx amLODIPine 5 mg PO DAILY #30 tablet 10/21/18 Unknown Rx levoFLOXacin [Levaquin] 750 mg PO QDAY #5 tablet 10/21/18 Unknown Rx metOLazone [Zaroxolyn] 5 mg PO DAILY tablet 10/21/18 Unknown Rx predniSONE [Deltasone] 10 mg PO QDAY tablet 10/21/18 Unknown Rx Allergies Allergy/AdvReac Type Severity Reaction Status Date / Time SAPNA Inhibitors Allergy Angioedema Verified 09/03/19 11:48 lisinopril Allergy Angioedema Verified 09/03/19 11:48 roflumilast [From Daliresp] AdvReac cough Verified 09/03/19 11:48 ED Review of Systems ROS: Stated complaint: SOB Other details as noted in HPI Comment: All other systems reviewed and negative Constitutional: denies: chills, fever Respiratory: denies: cough, shortness of breath, SOB with exertion Cardiovascular: denies: chest pain Gastrointestinal: abdominal pain, nausea, vomiting, diarrhea Genitourinary: denies: urgency Musculoskeletal: denies: back pain ED Past Medical Hx - Past Medical History Hx Hypertension: Yes Hx Heart Attack/AMI: (coronary artery stent) Hx Congestive Heart Failure: Yes Hx Diabetes: Yes Hx Deep Vein Thrombosis: No Hx Pulmonary Embolism: No Hx Liver Disease: No Hx Sickle Cell Disease: No Hx Asthma: No Hx COPD: Yes (Home 02 user 2 liters) Hx Tuberculosis: No Hx HIV: No Additional medical history: heart stents 2 years ago, sleep apnea, hx of stroke. CAD - Surgical History Hx Coronary Stent: Yes Hx Open Heart Surgery: No Hx Pacemaker: No Hx Internal Defibrillator: No Hx Cholecystectomy: No Hx Appendectomy: No Hx Breast Surgery: No Additional Surgical History: x 2 - Social History Smoking Status: Former Smoker Substance Use Type: None - Medications Home Medications: Home Medications Medication Instructions Recorded Confirmed Last Taken Type AtorvaSTATin [Lipitor] 40 mg PO QHS 10/17/18 10/17/18 Unknown History Clopidogrel [Plavix] 1 tab PO DAILY 10/17/18 10/17/18 Unknown History Ezetimibe [Zetia] 10 mg PO QDAY 10/17/18 10/17/18 Unknown History Furosemide [Lasix TAB] 1 tab PO DAILY 10/17/18 10/17/18 Unknown History Insulin Aspart (Nf) [NovoLOG 100 See Protocol SQ ACHS 10/17/18 10/17/18 Unknown History UNITS/ML VIAL] Lantus VIAL 36 units SQ HS 10/17/18 10/17/18 10/15/18 22:00 History Potassium 1 tab PO DAILY 10/17/18 10/17/18 Unknown History carvediloL [Carvedilol] 1 tab PO BID 10/17/18 10/17/18 Unknown History oxyCODONE [roxiCODONE] 5 mg PO BID 10/17/18 10/17/18 Unknown History Aspirin 1 tab PO DAILY #30 tab.chew 10/21/18 Unknown Rx Docusate Sodium [Colace CAP] 100 mg PO BID capsule 10/21/18 Unknown Rx Famotidine 20 mg PO DAILY #30 tablet 10/21/18 Unknown Rx Hydralazine HCl 1 tab PO BID #60 tablet 10/21/18 Unknown Rx ISOSORBIDE MONOnitrate [Imdur ER] 30 mg PO DAILY tablet 10/21/18 Unknown Rx Insulin Glargine [Lantus VIAL] 36 units SUB-Q QHS units 10/21/18 Unknown Rx Ipratropium/Albuterol Sulfate 1 ampul IH TIDRT ampul.neb 10/21/18 Unknown Rx [DUONEB *Not for PRN Use*] Lispro Insulin [HumaLOG] 0 unit SUB-Q ACHS units 10/21/18 Unknown Rx Potassium Chloride [Klor-Con M10] 10 meq PO DAILY #30 tab.er.prt 10/21/18 Unknown Rx Temazepam [Restoril] 15 mg PO HS capsule 10/21/18 Unknown Rx amLODIPine 5 mg PO DAILY #30 tablet 10/21/18 Unknown Rx levoFLOXacin [Levaquin] 750 mg PO QDAY #5 tablet 10/21/18 Unknown Rx metOLazone [Zaroxolyn] 5 mg PO DAILY tablet 10/21/18 Unknown Rx predniSONE [Deltasone] 10 mg PO QDAY tablet 10/21/18 Unknown Rx ED Physical Exam - General Limitations: No Limitations General appearance: alert, in no apparent distress - Head Head exam: Present: atraumatic, normocephalic, normal inspection - Eye Eye exam: Present: normal appearance - ENT ENT exam: Present: mucous membranes dry - Neck Neck exam: Present: normal inspection, full ROM. Absent: tenderness, meningism us - Respiratory Respiratory exam: Present: normal lung sounds bilaterally - Cardiovascular Cardiovascular Exam: Present: regular rate, normal rhythm, normal heart sounds - GI/Abdominal GI/Abdominal exam: Present: soft, normal bowel sounds. Absent: distended, tenderness, guarding, rebound, rigid, organomegaly, mass, bruit, pulsatile mass, hernia - Extremities Exam Extremities exam: Present: normal inspection, full ROM, normal capillary refill. Absent: tenderness, pedal edema, calf tenderness - Back Exam Back exam: Present: normal inspection, full ROM. Absent: CVA tenderness (R), CVA tenderness (L) - Neurological Exam Neurological exam: Present: alert, oriented X3, CN II-XII intact, normal gait, reflexes normal - Psychiatric Psychiatric exam: Present: normal mood - Skin Skin exam: Present: warm, intact, normal color ED Course Vital Signs 09/03/19 09/03/19 11:51 13:04 Temperature 98.5 F 98.7 F Pulse Rate 80 74 Respiratory 22 18 Rate Blood Pressure 142/66 Blood Pressure 135/66 [Right] O2 Sat by Pulse 98 100 Oximetry ED Medical Decision Making - Lab Data Result diagrams: 09/03/19 12:03 09/03/19 12:03 - Radiology Data Radiology results: report reviewed - Medical Decision Making Patient is 59 years old female with history of congestive heart failure, hypertension diabetes. Patient presented to the ER complaining of diffuse abdominal pain, nausea vomiting and diarrhea. Patient stated that diarrhea is watery no blood or mucus. Patient denied any fever or chills. Patient denied any chest pain or shortness of breath. Patient received normal saline and Zofran. Patient stated that she is feeling much better. Patient given prescription for Zofran vomiting and advised to follow-up with her primary care physician in the next 2 to 3 days and to return to the ER if she develop any new symptoms or if her symptoms get worse. Critical care attestation.: If time is entered above; I have spent that time in minutes in the direct care of this critically ill patient, excluding procedure time. ED Disposition Clinical Impression: Abdominal pain, Nausea, vomiting and diarrhea Disposition: TO HOME OR SELFCARE Is pt being admited?: No Condition: Stable Instructions: Acute Nausea and Vomiting (ED), Abdominal Pain (ED), Acute Diarrhea (ED) Referrals: MIGUEL GODINEZ MD [Primary Care Provider] - 3-5 Days
[2019-09-03 14:13] LABS: Bacteria,Urine 2+ /HPF (Negative); Bilirubin,Urine NEG (Negative); Blood,Urine NEG (Negative); Color,Urine Yellow (Yellow); Mucus,Urine FEW /HPF; Protein,Urine <15 mg/dL mg/dL (Negative); Urobilinogen,Urine < 2.0 mg/dL (<2.0)
== END 2019-09-03 15:30 | disposition home or self-care (01) ==
LOC: ED 11:47
DX: R10.84 Generalized abdominal pain (principal); R11.2 Nausea with vomiting, unspecified; R19.7 Diarrhea, unspecified; I11.0 Hypertensive heart disease with heart failure; I50.9 Heart failure, unspecified; E11.9 Type 2 diabetes mellitus without complications; J44.9 Chronic obstructive pulmonary disease, unspecified; Z87.891 Personal history of nicotine dependence
CPT/HCPCS: 36415; 71250; 74176; 80053; 81001; 83690; 85025; 87076; 87086; 87186; 96374; 99284; J2405; J7040

== ENCOUNTER 2020-01-27 15:15 | Emergency (ER) | payer MEDICAID ==
[2020-01-27 15:44] VITALS: BP 120/68
--- NOTE | 2020-01-27 17:25 | Emergency Department Report ---
Blank Doc - Documentation Documentation: 59-female that presents with right calf pain with right lateral tib-fib pain w ith hyperpigmention. PCP to r/o DVT. Exam: DVT vs. osteomyelitis This initial assessment/diagnostic orders/clinical plan/treatment(s) is/are subject to change based on patient's health status, clinical progression and re- assessment by fellow clinical providers in the ED. Further treatment and workup at subsequent clinical providers discretion. Patient/guardians urged not to elope from the ED as their condition may be serious if not clinically assessed and managed. Initial orders include: 1- Patient sent to [facility] for further evaluation and treatment 2- xrays 3- US doppler
--- NOTE | 2020-01-27 18:21 | XRay Report ---
RIGHT TIBIA AND FIBULA 4 VIEWS INDICATION / CLINICAL INFORMATION: right leg pain and swelling. COMPARISON: 10/17/2018 FINDINGS: Old healed proximal fibular fracture. No other significant skeletal abnormality Signer Name: Jaquan Marcial MD FACR Signed: 01/27/2020 6:17 PM Workstation Name: [id number]
--- NOTE | 2020-01-27 20:11 | Emergency Department Report ---
ED General Adult HPI - General Chief complaint: Extremity Injury, Lower Stated complaint: LEG PAIN Time Seen by Provider: 01/27/20 17:22 Source: patient Mode of arrival: Wheelchair Limitations: No Limitations - History of Present Illness Initial comments: 59-year-old F Cam[place] female with no [id number] -[place] female past medical history of diabetes, hypertension, CHF, peripheral vascular disease presents to the emergency department complaining of chronic right lower extremity pain states that she was referred by her pathology transcriptionist to come to the ED to obtain x-rays and -: Gradual Quality: aching, dull Consistency: constant Improves with: none Worsens with: none Associated Symptoms: denies other symptoms Treatments Prior to Arrival: none - Related Data Home Medications Medication Instructions Recorded Confirmed Last Taken AtorvaSTATin [Lipitor] 40 mg PO QHS 10/17/18 10/17/18 Unknown Clopidogrel [Plavix] 1 tab PO DAILY 10/17/18 10/17/18 Unknown Ezetimibe [Zetia] 10 mg PO QDAY 10/17/18 10/17/18 Unknown Furosemide [Lasix TAB] 1 tab PO DAILY 10/17/18 10/17/18 Unknown Insulin Aspart (Nf) [NovoLOG 100 See Protocol SQ ACHS 10/17/18 10/17/18 Unknown UNITS/ML VIAL] Lantus VIAL 36 units SQ HS 10/17/18 10/17/18 10/15/18 22:00 Potassium 1 tab PO DAILY 10/17/18 10/17/18 Unknown carvediloL [Carvedilol] 1 tab PO BID 10/17/18 10/17/18 Unknown oxyCODONE [roxiCODONE] 5 mg PO BID 10/17/18 10/17/18 Unknown Previous Rx's Medication Instructions Recorded Last Taken Type Aspirin 1 tab PO DAILY #30 tab.chew 10/21/18 Unknown Rx Docusate Sodium [Colace CAP] 100 mg PO BID capsule 10/21/18 Unknown Rx Famotidine 20 mg PO DAILY #30 tablet 10/21/18 Unknown Rx Hydralazine HCl 1 tab PO BID #60 tablet 10/21/18 Unknown Rx ISOSORBIDE MONOnitrate [Imdur ER] 30 mg PO DAILY tablet 10/21/18 Unknown Rx Insulin Glargine [Lantus VIAL] 36 units SUB-Q QHS units 10/21/18 Unknown Rx Ipratropium/Albuterol Sulfate 1 ampul IH TIDRT ampul.neb 10/21/18 Unknown Rx [DUONEB *Not for PRN Use*] Lispro Insulin [HumaLOG] 0 unit SUB-Q ACHS units 10/21/18 Unknown Rx Potassium Chloride [Klor-Con M10] 10 meq PO DAILY #30 tab.er.prt 10/21/18 Unknown Rx Temazepam [Restoril] 15 mg PO HS capsule 10/21/18 Unknown Rx amLODIPine 5 mg PO DAILY #30 tablet 10/21/18 Unknown Rx levoFLOXacin [Levaquin] 750 mg PO QDAY #5 tablet 10/21/18 Unknown Rx metOLazone [Zaroxolyn] 5 mg PO DAILY tablet 10/21/18 Unknown Rx predniSONE [Deltasone] 10 mg PO QDAY tablet 10/21/18 Unknown Rx Loperamide [Imodium] 2 mg PO Q2HR PRN #20 capsule 09/03/19 Unknown Rx Ondansetron [Zofran Odt] 4 mg PO Q8HR PRN #20 tab.rapdis 09/03/19 Unknown Rx Allergies Allergy/AdvReac Type Severity Reaction Status Date / Time SAPNA Inhibitors Allergy Angioedema Verified 09/03/19 11:48 lisinopril Allergy Angioedema Verified 09/03/19 11:48 roflumilast [From Daliresp] AdvReac cough Verified 09/03/19 11:48 ED Review of Systems ROS: Stated complaint: LEG PAIN Other details as noted in HPI Comment: All other systems reviewed and negative ED Past Medical Hx - Past Medical History Hx Hypertension: Yes Hx Heart Attack/AMI: (coronary artery stent) Hx Congestive Heart Failure: Yes Hx Diabetes: Yes Hx Deep Vein Thrombosis: No Hx Pulmonary Embolism: No Hx Liver Disease: No Hx Sickle Cell Disease: No Hx Asthma: No Hx COPD: Yes (Home 02 user 2 liters) Hx Tuberculosis: No Hx HIV: No Additional medical history: heart stents 2 years ago, sleep apnea, hx of stroke. CAD - Surgical History Hx Coronary Stent: Yes Hx Open Heart Surgery: No Hx Pacemaker: No Hx Internal Defibrillator: No Hx Cholecystectomy: No Hx Appendectomy: No Hx Breast Surgery: No Additional Surgical History: x 2 - Social History Smoking Status: Former Smoker Substance Use Type: Alcohol - Medications Home Medications: Home Medications Medication Instructions Recorded Confirmed Last Taken Type AtorvaSTATin [Lipitor] 40 mg PO QHS 10/17/18 10/17/18 Unknown History Clopidogrel [Plavix] 1 tab PO DAILY 10/17/18 10/17/18 Unknown History Ezetimibe [Zetia] 10 mg PO QDAY 10/17/18 10/17/18 Unknown History Furosemide [Lasix TAB] 1 tab PO DAILY 10/17/18 10/17/18 Unknown History Insulin Aspart (Nf) [NovoLOG 100 See Protocol SQ ACHS 10/17/18 10/17/18 Unknown History UNITS/ML VIAL] Lantus VIAL 36 units SQ HS 10/17/18 10/17/18 10/15/18 22:00 History Potassium 1 tab PO DAILY 10/17/18 10/17/18 Unknown History carvediloL [Carvedilol] 1 tab PO BID 10/17/18 10/17/18 Unknown History oxyCODONE [roxiCODONE] 5 mg PO BID 10/17/18 10/17/18 Unknown History Aspirin 1 tab PO DAILY #30 tab.chew 10/21/18 Unknown Rx Docusate Sodium [Colace CAP] 100 mg PO BID capsule 10/21/18 Unknown Rx Famotidine 20 mg PO DAILY #30 tablet 10/21/18 Unknown Rx Hydralazine HCl 1 tab PO BID #60 tablet 10/21/18 Unknown Rx ISOSORBIDE MONOnitrate [Imdur ER] 30 mg PO DAILY tablet 10/21/18 Unknown Rx Insulin Glargine [Lantus VIAL] 36 units SUB-Q QHS units 10/21/18 Unknown Rx Ipratropium/Albuterol Sulfate 1 ampul IH TIDRT ampul.neb 10/21/18 Unknown Rx [DUONEB *Not for PRN Use*] Lispro Insulin [HumaLOG] 0 unit SUB-Q ACHS units 10/21/18 Unknown Rx Potassium Chloride [Klor-Con M10] 10 meq PO DAILY #30 tab.er.prt 10/21/18 Unknown Rx Temazepam [Restoril] 15 mg PO HS capsule 10/21/18 Unknown Rx amLODIPine 5 mg PO DAILY #30 tablet 10/21/18 Unknown Rx levoFLOXacin [Levaquin] 750 mg PO QDAY #5 tablet 10/21/18 Unknown Rx metOLazone [Zaroxolyn] 5 mg PO DAILY tablet 10/21/18 Unknown Rx predniSONE [Deltasone] 10 mg PO QDAY tablet 10/21/18 Unknown Rx Loperamide [Imodium] 2 mg PO Q2HR PRN #20 capsule 09/03/19 Unknown Rx Ondansetron [Zofran Odt] 4 mg PO Q8HR PRN #20 tab.rapdis 09/03/19 Unknown Rx ED Physical Exam - General Limitations: No Limitations General appearance: alert, in no apparent distress - Head Head exam: Present: atraumatic, normocephalic - Eye Eye exam: Present: normal appearance - ENT ENT exam: Present: mucous membranes moist - Neck Neck exam: Present: normal inspection - Respiratory Respiratory exam: Present: normal lung sounds bilaterally. Absent: respiratory distress - Cardiovascular Cardiovascular Exam: Present: regular rate, normal rhythm. Absent: systolic murmur, diastolic murmur, rubs, gallop - GI/Abdominal GI/Abdominal exam: Present: soft, normal bowel sounds - Extremities Exam Extremities exam: Present: normal inspection, tenderness, normal capillary refill, other (There is tenderness along the lower aspect of the right lower extremity with some hyperpigmentation of the skin. Pulses 1+ to the dorsalis pedis. Mild erythema to the right hallux no broken skin mild fungal infection is appreciated as well.) - Back Exam Back exam: Present: normal inspection - Neurological Exam Neurological exam: Present: alert, oriented X3 - Psychiatric Psychiatric exam: Present: normal affect, normal mood - Skin Skin exam: Present: warm, dry, intact, normal color. Absent: rash ED Course Vital Signs 01/27/20 15:43 Temperature 98.1 F Pulse Rate 72 Respiratory 20 Rate Blood Pressure 120/68 O2 Sat by Pulse 98 Oximetry ED Medical Decision Making - Radiology Data Radiology results: report reviewed Print Report Referring Physician:JAQUAN SENIORPatient Name:SANTIAGO CASEPatient ID:[id number] of :[id number]:FemaleAccession:[id number] Date:[id number] Status:Finalized Findings [facility] [address] [place] [address] XRay Report Signed Patient: SANTIAGO CASE MR#: [id number] : 1960 Acct:[id number] Age/Sex: 59 / F ADM Date: 01/27/20 Loc: ED Attending Dr: Ordering Physician: JAQUAN SENIOR NP Date of Service: 01/27/20 Procedure(s): XR tibia fibula 2V RT Accession Number(s): [id number] cc: JAQUAN SENIOR NP Fluoro Time In Minutes: RIGHT TIBIA AND FIBULA 4 VIEWS INDICATION / CLINICAL INFORMATION: right leg pain and swelling. COMPARISON: 10/17/2018 FINDINGS: Old healed proximal fibular fracture. No other significant skeletal abnormality Signer Name: Jaquan Marcial MD FACR Signed: 01/27/2020 6:17 PM Workstation Name: [id number] Transcribed By: MS Dictated By: Jaquan Marcial MD Electronically Authenticated By: Jaquan Marcial MD Signed Date/Time: 01/27/201816 Patient Name: SANTIAGO CASE Gender: Female Date of : 1960 Referring Provider: JAQUAN SENIOR Organization: [facility] Accession Number: [id number] Requested Date: January 27, 2020 17:23 Report Status: Final Requested Procedure: 1 Procedure Description: VL venous duplex LE RT Modality: VL Findings Reporting MD: Keshia Fontanez Dictation Time: January 27, 2020 19:07 Rug Repairer: Not available Corporate Pilot Date: DUPLEX DOPPLER LOWER EXTREMITY VEINS, RIGHT INDICATION: right leg pain. TECHNIQUE: Duplex doppler imaging was performed through the veins of the right lower extremity using venous compression and other maneuvers. COMPARISON: 09/24/2017 FINDINGS: Common femoral vein: Negative. Superficial femoral vein: Negative. Popliteal vein: Negative. Calf veins: Negative. Additional findings: None. IMPRESSION: 1. No sonographic evidence for DVT in the right lower extremity. Signer Name: Keshia Fontanez MD Signed: 01/27/2020 7:07 PM Workstation Name: [id number] DD/ 14 TD/TT: Critical care attestation.: If time is entered above; I have spent that time in minutes in the direct care of this critically ill patient, excluding procedure time. ED Disposition Clinical Impression: Chronic pain of right lower extremity Disposition: DC-01 TO HOME OR SELFCARE Is pt being admited?: No Does the pt Need Aspirin: No Condition: Stable Instructions: Peripheral Vascular Disorders (ED), Stasis Dermatitis (ED), Arthralgia (ED) Additional Instructions: Please be sure to return to your pathology transcriptionist for further evaluation and treatment options regarding your chronic foot pain no current evidence of any fracture or DVT today Referrals: PRIMARY CARE, [Primary Care Provider] - 3-5 Days
--- NOTE | 2020-01-27 20:11 | Vascular Lab Report ---
DUPLEX DOPPLER LOWER EXTREMITY VEINS, RIGHT INDICATION: right leg pain. TECHNIQUE: Duplex doppler imaging was performed through the veins of the right lower extremity using venous comp ression and other maneuvers. COMPARISON: 09/24/2017 FINDINGS: Common femoral vein: Negative. Superficial femoral vein: Negative. Popliteal vein: Negative. Calf veins: Negative. Additional findings: None. IMPRESSION: 1. No sonographic evidence for DVT in the right lower extremity. Signer Name: Keshia Fontanez MD Signed: 01/27/2020 8:07 PM Workstation Name: [id number]
== END 2020-01-27 21:20 | disposition home or self-care (01) ==
LOC: ED 15:15
DX: M79.604 Pain in right leg (principal); G89.29 Other chronic pain; I11.0 Hypertensive heart disease with heart failure; I50.9 Heart failure, unspecified; J44.9 Chronic obstructive pulmonary disease, unspecified; I25.2 Old myocardial infarction; Z95.818 Presence of other cardiac implants and grafts; Z98.890 Other specified postprocedural states; Z87.891 Personal history of nicotine dependence; Z88.6 Allergy status to analgesic agent; Z88.8 Allergy status to other drugs, medicaments and biological substances